=== PATIENT | female | born 1975 | race American Indian/Alaskan Native ===

== ENCOUNTER 2021-03-04 19:42 | Inpatient (IN) | payer MEDICARE, OTHER ==
[2021-03-04] MEDS ORDERED: MORPHINE 2 MG/1 ML INJ IV ONE (20:23)
[2021-03-04] MEDS ORDERED: ONDANSETRON 4 MG/2 ML INJ IV ONE (20:23)
--- NOTE | 2021-03-04 21:16 | XRay Report ---
CHEST 1 VIEW 03/04/2021 8:06 PM INDICATION / CLINICAL INFORMATION: Dyspnea. COMPARISON: None available. FINDINGS: SUPPORT DEVICES: None. HEART / MEDIASTINUM: The heart size is normal with a left ventricular configuration. Pulmonary vascul ature is normal. LUNGS / PLEURA: No significant pulmonary or pleural abnormality. No pneumothorax. ADDITIONAL FINDINGS: No significant additional findings. IMPRESSION: No acute findings. Signer Name: Yung Roach MD Signed: 03/04/2021 9:12 PM Workstation Name: [id number]
[2021-03-04 21:19] LABS: INR 1.29 (0.87-1.13)
[2021-03-04 21:28] LABS: Alanine Aminotransferase 147 units/L (7-56); Albumin 2.9 g/dL (3.9-5); Blood Urea Nitrogen 32 mg/dL (7-17); Calcium 9.8 mg/dL (8.4-10.2); Hemolysis Index 14
[2021-03-04 21:43] LABS: BUN/Creatinine Ratio 107; Hematocrit 26.2 % (30.3-42.9); Hemoglobin 9.4 gm/dl (10.1-14.3); Mean Corpuscular HGB Conc 36 % (30-34); Mean Corpuscular Volume 108 fl (79-97); Red Blood Count 2.44 M/mm3 (3.65-5.03)
[2021-03-04 21:49] LABS: Red Cell Distribution Width 20.7 % (13.2-15.2)
[2021-03-04 21:51] LABS: Platelet Count 107 K/mm3 (140-440)
[2021-03-04] MEDS ORDERED: SODIUM CHLORIDE 0.9% 1000 ML 1,000 ML IV ONE (22:22)
[2021-03-04] MEDS ORDERED: diphenhydrAMINE 50 MG/ML VIAL IV ONE (23:17)
--- NOTE | 2021-03-05 00:12 | Emergency Department Report ---
ED Shortness of Breath HPI - General Chief Complaint: Dyspnea/Respdistress Stated Complaint: EDWIN Time Seen by Provider: 03/04/21 20:18 Source: patient, EMS Mode of arrival: Stretcher Limitations: Other - History of Present Illness Initial Comments: Patient is a 45-year-old F [place]ian female who is presenting with some shortness of breath. She has a relatively recent diagnosis of cirrhosis. Cirrhosis secondary to alcohol abuse. She is currently not on a transplant list. Patient states that she has some abdominal distention which is greater than normal. She denies any cough fevers chills nausea vomiting or diarrhea at this time. Patient is a [email or web address] patient - Related Data Home Medications Medication Instructions Recorded Confirmed Last Taken Cefdinir PO MDD 300 mg 03/04/21 Unknown Furosemide [Lasix] 20 mg PO QDAY 03/04/21 03/04/21 Unknown Prednisone 40 mg PO QDAY 03/04/21 03/04/21 Unknown QUEtiapine 50 mg PO QHS 03/04/21 03/04/21 Unknown Spironolactone 50 mg PO DAILY 03/04/21 03/04/21 Unknown Allergies Allergy/AdvReac Type Severity Reaction Status Date / Time ketorolac [From Toradol] AdvReac Rash Verified 03/04/21 20:30 ED Review of Systems ROS: Stated complaint: EDWIN Other details as noted in HPI Comment: All other systems reviewed and negative ED Past Medical Hx - Medications Home Medications: Home Medications Medication Instructions Recorded Confirmed Last Taken Type Cefdinir PO MDD 300 mg 03/04/21 Unknown History Furosemide [Lasix] 20 mg PO QDAY 03/04/21 03/04/21 Unknown History Prednisone 40 mg PO QDAY 03/04/21 03/04/21 Unknown History QUEtiapine 50 mg PO QHS 03/04/21 03/04/21 Unknown History Spironolactone 50 mg PO DAILY 03/04/21 03/04/21 Unknown History ED Physical Exam - General Limitations: Other General appearance: alert, in no apparent distress - Head Head exam: Present: atraumatic, normocephalic - Eye Eye exam: Present: normal appearance, scleral icterus - ENT ENT exam: Present: mucous membranes moist - Neck Neck exam: Present: normal inspection - Respiratory Respiratory exam: Present: normal lung sounds bilaterally. Absent: respiratory distress, wheezes, rales - Cardiovascular Cardiovascular Exam: Present: regular rate, normal rhythm, normal heart sounds. Absent: systolic murmur, diastolic murmur, rubs, gallop - GI/Abdominal GI/Abdominal exam: Present: soft, distended, normal bowel sounds. Absent: tenderness, guarding, rebound - Extremities Exam Extremities exam: Present: normal inspection - Back Exam Back exam: Present: normal inspection - Neurological Exam Neurological exam: Present: alert, oriented X3, other (Slow to answer questions but ANO x3) - Psychiatric Psychiatric exam: Present: normal affect, normal mood - Skin Skin exam: Present: warm, dry, intact, normal color. Absent: rash ED Course Vital Signs 03/04/21 20:01 Temperature 97.7 F Pulse Rate 85 Respiratory 18 Rate Blood Pressure 126/71 [Right] O2 Sat by Pulse 100 Oximetry - Reevaluation(s) Reevaluation #1: 03/05/21 00:12 Eventually got a call back from [facility] and discussed the patient with Dr. Gaytan. Patient has been accepted to a [facility] facility however he is not sure that they have a bed at this time. Per their new policy will wait approximately 2 hours to hear back from them regarding the patient's bed status. If there is no bed for the patient had a [facility] facility the patient is to be admitted here. Patient will be signed out to my ER colleague for update on bed status at a [facility] ED Medical Decision Making - Lab Data Result diagrams: 03/04/21 20:53 03/04/21 20:53 Lab Results 03/04/21 03/04/21 03/04/21 Range/Units 20:53 20:53 20:53 WBC 12.0 H (4.5-11.0) K/mm3 RBC 2.44 L (3.65-5.03) M/mm3 Hgb 9.4 L (10.1-14.3) gm/dl Hct 26.2 L (30.3-42.9) % MCV 108 H (79-97) fl MCH 39 H (28-32) pg MCHC 36 H (30-34) % RDW 20.7 H (13.2-15.2) % Plt Count 107 L (140-440) K/mm3 PT 16.7 H (12.2-14.9) Sec. INR 1.29 H (0.87-1.13) APTT 27.0 (24.2-36.6) Sec. Sodium 123 L (137-145) mmol/L Potassium 5.5 H (3.6-5.0) mmol/L Chloride 97.9 L (98-107) mmol/L Carbon Dioxide 11 L (22-30) mmol/L Anion Gap 20 mmol/L BUN 32 H (7-17) mg/dL Creatinine 0.3 L (0.6-1.2) mg/dL Estimated GFR > 60 ml/min BUN/Creatinine Ratio 107 % Glucose 148 H (65-100) mg/dL Calcium 9.8 (8.4-10.2) mg/dL Total Bilirubin 18.90 H (0.1-1.2) mg/dL AST 113 H (5-40) units/L ALT 147 H (7-56) units/L Alkaline Phosphatase 164 H (35-129) units/L Ammonia (25-60) umol/L Total Protein 7.0 (6.3-8.2) g/dL Albumin 2.9 L (3.9-5) g/dL Albumin/Globulin Ratio 0.7 % Plasma/Serum Alcohol (0-0.07) % 03/04/21 03/04/21 Range/Units 20:53 20:53 WBC (4.5-11.0) K/mm3 RBC (3.65-5.03) M/mm3 Hgb (10.1-14.3) gm/dl Hct (30.3-42.9) % MCV (79-97) fl MCH (28-32) pg MCHC (30-34) % RDW (13.2-15.2) % Plt Count (140-440) K/mm3 PT (12.2-14.9) Sec. INR (0.87-1.13) APTT (24.2-36.6) Sec. Sodium (137-145) mmol/L Potassium (3.6-5.0) mmol/L Chloride (98-107) mmol/L Carbon Dioxide (22-30) mmol/L Anion Gap mmol/L BUN (7-17) mg/dL Creatinine (0.6-1.2) mg/dL Estimated GFR ml/min BUN/Creatinine Ratio % Glucose (65-100) mg/dL Calcium (8.4-10.2) mg/dL Total Bilirubin (0.1-1.2) mg/dL AST (5-40) units/L ALT (7-56) units/L Alkaline Phosphatase (35-129) units/L Ammonia 57.0 (25-60) umol/L Total Protein (6.3-8.2) g/dL Albumin (3.9-5) g/dL Albumin/Globulin Ratio % Plasma/Serum Alcohol < 0.01 (0-0.07) % - Radiology Data CHEST 1 VIEW 03/04/2021 8:06 PM INDICATION / CLINICAL INFORMATION: Dyspnea. COMPARISON: None available. FINDINGS: SUPPORT DEVICES: None. HEART / MEDIASTINUM: The heart size is normal with a left ventricular configuration. Pulmonary vasculature is normal. LUNGS / PLEURA: No significant pulmonary or pleural abnormality. No pneumothorax. ADDITIONAL FINDINGS: No significant additional findings. IMPRESSION: No acute findings. Signer Name: Yung Roach MD Signed: 03/04/2021 9:12 PM Workstation Name: [facility] - Medical Decision Making Patient is a 45-year-old F [place] female who is presenting with shortness of breath. Patient does have some abdominal distention and ascites secondary to her advancing liver cirrhosis. Patient is quite jaundiced and experiencing some itching. Patient does have a low sodium of 123. According to [facility] documentation and her sodium does run in the upper 120s. Patient started on some IV fluids. Patient to be admitted. Critical care attestation.: If time is entered above; I have spent that time in minutes in the direct care of this critically ill patient, excluding procedure time. ED Disposition Clinical Impression: Ascites, Liver cirrhosis, Dyspnea, Hyponatremia, Acute kidney injury, Dehydration Disposition: 02 [facility]ORT [facility] Is pt being admited?: No Does the pt Need Aspirin: No Condition: Stable Referrals: [facility]ER[facility] [Other] - 3-5 Days Time of Disposition: 00:18
[2021-03-05 01:40] LABS: Anisocytosis 1+; Total Cells Counted 100
[2021-03-05 01:42] LABS: Burr Cells 1+; Platelet Estimate Consistent w Auto; Schistocytes Few; Tear Drop Cells Few
[2021-03-05] MEDS ORDERED: ACETAMINOPHEN 325 MG TAB PO PRN (03:35)
[2021-03-05] MEDS ORDERED: ALBUTEROL 2.5 MG/3 ML NEBU IH PRN (03:35)
[2021-03-05] MEDS ORDERED: ONDANSETRON 4 MG/2 ML INJ IV PRN (03:35)
--- NOTE | 2021-03-05 03:45 | History and Physical Report ---
History of Present Illness Date of examination: 03/05/21 Date of admission: 03/05/21 Chief complaint: Dyspnea Abdominal distention History of present illness: 45-year-old female with history of ascites cirrhosis and alcohol abuse was brought to the emergency room because of shortness of breath for the last couple of days. Patient has cirrhosis secondary to alcohol abuse. She is currently not on a transplant list. Patient states that she has some abdominal distention which is greater than normal. She denies any cough fevers chills nausea vomiting or diarrhea at this time. Patient is a [place] patient In the emergency room patient is found to have ascites. Also patient total bilirubin is 18.90. AST 113 ALT 147 alkaline phosphatase 164. We are going to admit the patient to consult GI and interventional radiology for evaluation. Patient is a [place] patient Past History Past Medical History: heart failure, other (Cirrhosis alcohol abuse ascites) Medications and Allergies Allergies Allergy/AdvReac Type Severity Reaction Status Date / Time ketorolac [From Toradol] AdvReac Rash Verified 03/04/21 20:30 Home Medications Medication Instructions Recorded Confirmed Last Taken Type Cefdinir PO MDD 300 mg 03/04/21 Unknown History Furosemide [Lasix] 20 mg PO QDAY 03/04/21 03/04/21 Unknown History Prednisone 40 mg PO QDAY 03/04/21 03/04/21 Unknown History QUEtiapine 50 mg PO QHS 03/04/21 03/04/21 Unknown History Spironolactone 50 mg PO DAILY 03/04/21 03/04/21 Unknown History Active Meds: Active Medications Acetaminophen (Acetaminophen 325 Mg Tab) 650 mg PO Q4H PRN PRN Reason: Pain MILD(1-3)/Fever >100.5/SIM Albuterol (Albuterol 2.5 Mg/3 Ml Nebu) 2.5 mg IH Q4HRT PRN PRN Reason: Shortness Of Breath Albuterol/Ipratropium (Ipratropium/Albuterol Sulfate 3 Ml Ampul.Neb) 1 ampul IH Q6HRT LUCERO Famotidine (Famotidine 20 Mg Tab) 20 mg PO BID LUCERO Hydromorphone HCl (Hydromorphone 1 Mg/1 Ml Inj) 0.5 mg IV Q3H PRN PRN Reason: Pain , Severe (7-10) Miscellaneous Medication (Prednisone) 40 mg PO QDAY [facility] Miscellaneous Medication (Quetiapine) 50 mg PO QHS [facility] Miscellaneous Medication (Spironolactone) 50 mg PO DAILY [facility] Ondansetron HCl (Ondansetron 4 Mg/2 Ml Inj) 4 mg IV Q8H PRN PRN Reason: Nausea And Vomiting Oxycodone/Acetaminophen (Oxycodone /Acetaminophen 5-325mg Tab) 1 tab PO Q6H PRN PRN Reason: Pain, Moderate (4-6) Sodium Chloride (Sodium Chloride 0.9% 10 Ml Flush Syringe) 10 ml IV BID LUCERO Sodium Chloride (Sodium Chloride 0.9% 10 Ml Flush Syringe) 10 ml IV PRN PRN PRN Reason: LINE FLUSH Review of Systems All systems: negative Cardiovascular: edema, shortness of breath, dyspnea on exertion Respiratory: shortness of breath, dyspnea on exertion Gastrointestinal: other (Abdominal distention) Exam - Constitutional Vitals: Temp Pulse Resp BP Pulse Ox 97.7 F 64 13 138/79 100 03/04/21 20:01 03/05/21 03:15 03/05/21 03:15 03/05/21 03:15 03/05/21 03:15 General appearance: Present: no acute distress, well-nourished - EENT Eyes: Present: PERRL ENT: hearing intact, clear oral mucosa - Neck Neck: Present: supple, normal ROM - Respiratory Respiratory effort: normal Respiratory: bilateral: CTA - Cardiovascular Heart Sounds: Present: S1 & S2. Absent: rub, click - Extremities Extremities: pulses symmetrical Extremity abnormal: edema Peripheral Pulses: within normal limits - Abdominal General gastrointestinal: Present: soft, non-tender, distended, normal bowel sounds Female genitourinary: Present: normal - Integumentary Integumentary: Present: clear, warm, dry - Musculoskeletal Musculoskeletal: gait normal, strength equal bilaterally - Psychiatric Psychiatric: appropriate mood/affect, intact judgment & insight - Neurologic Neurologic: CNII-XII intact, moves all extremities Results - Labs CBC & Chem 7: 03/04/21 20:53 03/04/21 20:53 Labs: Laboratory Last Values WBC 12.0 K/mm3 (4.5-11.0) H 03/04/21 20:53 RBC 2.44 M/mm3 (3.65-5.03) L 03/04/21 20:53 Hgb 9.4 gm/dl (10.1-14.3) L 03/04/21 20:53 Hct 26.2 % (30.3-42.9) L 03/04/21 20:53 MCV 108 fl (79-97) H 03/04/21 20:53 MCH 39 pg (28-32) H 03/04/21 20:53 MCHC 36 % (30-34) H 03/04/21 20:53 RDW 20.7 % (13.2-15.2) H 03/04/21 20:53 Plt Count 107 K/mm3 (140-440) L 03/04/21 20:53 Add Manual Diff Complete 03/04/21 20:53 Total Counted 100 03/04/21 20:53 Seg Neuts % (Manual) 81.0 % (40.0-70.0) H 03/04/21 20:53 Lymphocytes % (Manual) 17.0 % (13.4-35.0) 03/04/21 20:53 Monocytes % (Manual) 2.0 % (0.0-7.3) 03/04/21 20:53 Nucleated RBC % Not Reportable 03/04/21 20:53 Seg Neutrophils # Man 9.7 K/mm3 (1.8-7.7) H 03/04/21 20:53 Band Neutrophils # 0.0 K/mm3 03/04/21 20:53 Lymphocytes # (Manual) 2.0 K/mm3 (1.2-5.4) 03/04/21 20:53 Abs React Lymphs (Man) 0.0 K/mm3 03/04/21 20:53 Monocytes # (Manual) 0.2 K/mm3 (0.0-0.8) 03/04/21 20:53 Eosinophils # (Manual) 0.0 K/mm3 (0.0-0.4) 03/04/21 20:53 Basophils # (Manual) 0.0 K/mm3 (0.0-0.1) 03/04/21 20:53 Metamyelocytes # 0.0 K/mm3 03/04/21 20:53 Myelocytes # 0.0 K/mm3 03/04/21 20:53 Promyelocytes # 0.0 K/mm3 03/04/21 20:53 Blast Cells # 0.0 K/mm3 03/04/21 20:53 WBC Morphology Not Reportable 03/04/21 20:53 Hypersegmented Neuts Not Reportable 03/04/21 20:53 Hyposegmented Neuts Not Reportable 03/04/21 20:53 Hypogranular Neuts Not Reportable 03/04/21 20:53 Smudge Cells Not Reportable 03/04/21 20:53 Toxic Granulation Not Reportable 03/04/21 20:53 Toxic Vacuolation Not Reportable 03/04/21 20:53 Dohle Bodies Not Reportable 03/04/21 20:53 Pelger-Huet Anomaly Not Reportable 03/04/21 20:53 Pita Rods Not Reportable 03/04/21 20:53 Platelet Estimate Consistent w auto 03/04/21 20:53 Clumped Platelets Not Reportable 03/04/21 20:53 Plt Clumps, EDTA Not Reportable 03/04/21 20:53 Large Platelets Not Reportable 03/04/21 20:53 Giant Platelets Not Reportable 03/04/21 20:53 Platelet Satelliting Not Reportable 03/04/21 20:53 Plt Morphology Comment Not Reportable 03/04/21 20:53 RBC Morphology Not Reportable 03/04/21 20:53 Dimorphic RBCs Not Reportable 03/04/21 20:53 Polychromasia Not Reportable 03/04/21 20:53 Hypochromasia Not Reportable 03/04/21 20:53 Poikilocytosis Not Reportable 03/04/21 20:53 Anisocytosis 1+ 03/04/21 20:53 Microcytosis Not Reportable 03/04/21 20:53 Macrocytosis Not Reportable 03/04/21 20:53 Spherocytes Not Reportable 03/04/21 20:53 Pappenheimer Bodies Not Reportable 03/04/21 20:53 Sickle Cells Not Reportable 03/04/21 20:53 Target Cells Not Reportable 03/04/21 20:53 Tear Drop Cells Few 03/04/21 20:53 Ovalocytes Not Reportable 03/04/21 20:53 Helmet Cells Not Reportable 03/04/21 20:53 Eaton-Blissfield Bodies Not Reportable 03/04/21 20:53 Winnie Rings Not Reportable 03/04/21 20:53 Jd Cells 1+ 03/04/21 20:53 Bite Cells Not Reportable 03/04/21 20:53 Crenated Cell Not Reportable 03/04/21 20:53 Elliptocytes Not Reportable 03/04/21 20:53 Acanthocytes (Spur) Not Reportable 03/04/21 20:53 Rouleaux Not Reportable 03/04/21 20:53 Hemoglobin C Crystals Not Reportable 03/04/21 20:53 Schistocytes Few 03/04/21 20:53 Malaria parasites Not Reportable 03/04/21 20:53 Kp Bodies Not Reportable 03/04/21 20:53 Hem Pathologist Commnt No 03/04/21 20:53 PT 16.7 Sec. (12.2-14.9) H 03/04/21 20:53 INR 1.29 (0.87-1.13) H 03/04/21 20:53 APTT 27.0 Sec. (24.2-36.6) 03/04/21 20:53 Sodium 123 mmol/L (137-145) L 03/04/21 20:53 Potassium 5.5 mmol/L (3.6-5.0) H 03/04/21 20:53 Chloride 97.9 mmol/L (98-107) L 03/04/21 20:53 Carbon Dioxide 11 mmol/L (22-30) L 03/04/21 20:53 Anion Gap 20 mmol/L 03/04/21 20:53 BUN 32 mg/dL (7-17) H 03/04/21 20:53 Creatinine 0.3 mg/dL (0.6-1.2) L 03/04/21 20:53 Estimated GFR > 60 ml/min 03/04/21 20:53 BUN/Creatinine Ratio 107 % 03/04/21 20:53 Glucose 148 mg/dL (65-100) H 03/04/21 20:53 Calcium 9.8 mg/dL (8.4-10.2) 03/04/21 20:53 Total Bilirubin 18.90 mg/dL (0.1-1.2) H 03/04/21 20:53 AST 113 units/L (5-40) H 03/04/21 20:53 ALT 147 units/L (7-56) H 09/23/21 20:53 Alkaline Phosphatase 164 units/L (35-129) H 03/04/21 20:53 Ammonia 57.0 umol/L (25-60) 03/04/21 20:53 Total Protein 7.0 g/dL (6.3-8.2) 03/04/21 20:53 Albumin 2.9 g/dL (3.9-5) L 03/04/21 20:53 Albumin/Globulin Ratio 0.7 % 03/04/21 20:53 Plasma/Serum Alcohol < 0.01 % (0-0.07) 03/04/21 20:53 - Imaging and Cardiology Chest x-ray: report reviewed Assessment and Plan VTE prophylaxis?: Mechanical Plan of care discussed with patient/family: Yes - Patient Problems (1) Ascites Current Visit: Yes Status: Acute Plan to address problem: Admit the patient to the medical floor. Put the patient on cardiac diet. Fluid restriction. Lasix 40 mg IV daily. Pepcid 20 mg p.o. twice daily will consult GI and interventional radiology for evaluation and possible paracentesis (2) Hyperkalemia Current Visit: Yes Status: Acute Plan to address problem: We are giving Kayexalate 30 g p.o. x1 dose. Recheck BMP in the morning (3) Alcohol abuse Current Visit: Yes Status: Acute Plan to address problem: We counseled the patient regarding quit drinking. Patient is put on thiamine folic acid. And banana bag (4) Dyspnea Current Visit: Yes Status: Acute Plan to address problem: Oxygen via nasal cannula 3 to per minute. DuoNeb by nebulizer every 4 hours. Albuterol via nebulizer every 4 hours as needed. Lasix 40 mg IV daily (5) Hyponatremia Current Visit: Yes Status: Acute Plan to address problem: We will put the patient on fluid restriction. We will recheck BMP in the morning we will monitor the patient closely (6) Liver cirrhosis Current Visit: Yes Status: Acute Plan to address problem: We counseled the patient regarding quit drinking. We consulted GI for evaluation. We recheck CMP in the morning (7) Deep vein thrombosis (DVT) prophylaxis declined Current Visit: Yes Status: Acute Plan to address problem: SCD for DVT prophylaxis. Pepcid 20 mg p.o. twice daily for GI prophylaxis. Patient is a full code
[2021-03-05] MEDS ORDERED: FUROSEMIDE 40 MG/4 ML INJ IV ONE (03:49)
[2021-03-05] MEDS ORDERED: SODIUM POLYSTYRENE 15 GM/60 ML ORAL LIQD PO ONE (03:50)
[2021-03-05] MEDS: HYDROmorphone 1 MG/1 ML INJ IV PRN ×2 (04:52→23:00)
[2021-03-05] MEDS ORDERED: diphenhydrAMINE 50 MG/ML VIAL IV ONE ×2 (09:26→18:24)
[2021-03-05] MEDS ORDERED: PREDNISONE 40 MG PO SCH (10:00)
[2021-03-05] MEDS ORDERED: THIAMINE 100 MG TAB PO SCH (10:00)
[2021-03-05] MEDS ORDERED: SPIRONOLACTONE 50 MG PO SCH (10:00)
[2021-03-05] MEDS ORDERED: predniSONE 20 MG TAB PO SCH (10:00)
[2021-03-05] MEDS ORDERED: SPIRONOLACTONE 50 MG TAB PO SCH (10:00)
[2021-03-05] MEDS ORDERED: FAMOTIDINE 20 MG TAB PO SCH (10:00)
[2021-03-05] MEDS ORDERED: FOLIC ACID 1 MG TAB PO SCH (10:00)
[2021-03-05] MEDS: IPRATROPIUM/ALBUTEROL SULFATE 3 ML AMPUL.NEB IH SCH ×2 (10:24→15:28)
[2021-03-05] MEDS ORDERED: LORazepam 1 MG TAB PO ONE (12:25)
--- NOTE | 2021-03-05 13:25 | Progress Note ---
Assessment and Plan Assessment and plan: #Decompensated alcoholic cirrhosis with ascites #Volume overload #Alcohol dependence -Initiated fluid restriction of 1.5 L/day and IV Lasix 40 mg x 1 in the ED -GI consulted; pending recs -Interventional radiology consulted for possible diagnostic versus therapeutic paracentesis; pending recs -Started on ceftriaxone 1 g daily for SBP prophylaxis -Continue with thiamine and folic acid -Placed on cardiac diet -Counseled on alcohol cessation; patient expressed understanding #Acute hypoxic respiratory failure -Patient requiring 3 L nasal cannula (no oxygen requirement at home); wean as tolerated -Continue with albuterol nebulizers as needed and DuoNeb as needed -She will improved with continue diuresis -We will continue to monitor #Hyperkalemia -Potassium 5.5 -Received Kayexalate 30 g by mouth x1 in the ED -Repeating BMP today -We will continue to monitor to determine if hepatorenal syndrome is occurring #Hyponatremia -Na 123 -Etiology unknown but could be secondary to volume overload -We will order urine osmolality, urine sodium, urine chloride, and urine potassium -We will continue to monitor #UTI -Previously diagnosed with a UTI at outside facility and discharged with p.o. cefdinir 300 mg twice daily x10 days; however, patient was admitted to before initiation -Gram-negative bacteria will be covered with administration of ceftriaxone while inpatient. Will need to complete a 10-day course. If discharged prior to 10 days, patient can continue with remaining cefdinir. #Anxiety -Continue home quetiapine 50 mg at night #DVT prophylaxis -Patient declined chemical prophylaxis; continue with SCDs bilaterally Disposition Plan: Continue medical management History Interval history: No acute events overnight. Hospitalist Physical - Constitutional Vitals: Temp Pulse Resp BP Pulse Ox 97.7 F 85 12 141/87 100 03/04/21 20:01 03/05/21 11:04 03/05/21 05:30 03/05/21 11:04 03/05/21 06:45 General appearance: Present: no acute distress, well-nourished - EENT Eyes: Present: EOM intact, scleral icterus ENT: hearing intact, clear oral mucosa, dentition normal - Neck Neck: Present: supple, normal ROM - Respiratory Respiratory effort: normal Respiratory: bilateral: rhonchi - Cardiovascular Rhythm: regularly irregular Heart Sounds: Present: S1 & S2, systolic murmur - Extremities Extremities: no ischemia, pulses intact, pulses symmetrical, normal temperature Extremity abnormal: edema (Trace edema to bilateral knees) Peripheral Pulses: within normal limits - Abdominal General gastrointestinal: soft, tender, distended (Mild ascites present), normal bowel sounds - Integumentary Integumentary: Present: clear, warm, dry, jaundice - Psychiatric Psychiatric: appropriate mood/affect, intact judgment & insight, memory intact, cooperative - Neurologic Neurologic: CNII-XII intact, moves all extremities - Allied Health Allied health notes reviewed: nursing HEART Score - HEART Score History: Moderately suspicious EKG: Non-specific Age: 45-65 Risk factors: 1-2 risk factors - Critical Actions Critical Actions: 4-6 pts:12-16.6% risk of adverse cardiac event. Should be admitted Results - Labs CBC & Chem 7: 03/04/21 20:53 03/04/21 20:53 Labs: Laboratory Last Values WBC 12.0 K/mm3 (4.5-11.0) H 03/04/21 20:53 RBC 2.44 M/mm3 (3.65-5.03) L 03/04/21 20:53 Hgb 9.4 gm/dl (10.1-14.3) L 03/04/21 20:53 Hct 26.2 % (30.3-42.9) L 03/04/21 20:53 MCV 108 fl (79-97) H 03/04/21 20:53 MCH 39 pg (28-32) H 03/04/21 20:53 MCHC 36 % (30-34) H 03/04/21 20:53 RDW 20.7 % (13.2-15.2) H 03/04/21 20:53 Plt Count 107 K/mm3 (140-440) L 03/04/21 20:53 Add Manual Diff Complete 03/04/21 20:53 Total Counted 100 03/04/21 20:53 Seg Neuts % (Manual) 81.0 % (40.0-70.0) H 03/04/21 20:53 Lymphocytes % (Manual) 17.0 % (13.4-35.0) 03/04/21 20:53 Monocytes % (Manual) 2.0 % (0.0-7.3) 03/04/21 20:53 Nucleated RBC % Not Reportable 03/04/21 20:53 Seg Neutrophils # Man 9.7 K/mm3 (1.8-7.7) H 03/04/21 20:53 Band Neutrophils # 0.0 K/mm3 03/04/21 20:53 Lymphocytes # (Manual) 2.0 K/mm3 (1.2-5.4) 03/04/21 20:53 Abs React Lymphs (Man) 0.0 K/mm3 03/04/21 20:53 Monocytes # (Manual) 0.2 K/mm3 (0.0-0.8) 03/04/21 20:53 Eosinophils # (Manual) 0.0 K/mm3 (0.0-0.4) 03/04/21 20:53 Basophils # (Manual) 0.0 K/mm3 (0.0-0.1) 03/04/21 20:53 Metamyelocytes # 0.0 K/mm3 03/04/21 20:53 Myelocytes # 0.0 K/mm3 03/04/21 20:53 Promyelocytes # 0.0 K/mm3 03/04/21 20:53 Blast Cells # 0.0 K/mm3 03/04/21 20:53 WBC Morphology Not Reportable 03/04/21 20:53 Hypersegmented Neuts Not Reportable 03/04/21 20:53 Hyposegmented Neuts Not Reportable 03/04/21 20:53 Hypogranular Neuts Not Reportable 03/04/21 20:53 Smudge Cells Not Reportable 03/04/21 20:53 Toxic Granulation Not Reportable 03/04/21 20:53 Toxic Vacuolation Not Reportable 03/04/21 20:53 Dohle Bodies Not Reportable 03/04/21 20:53 Pelger-Huet Anomaly Not Reportable 03/04/21 20:53 Pita Rods Not Reportable 03/04/21 20:53 Platelet Estimate Consistent w auto 03/04/21 20:53 Clumped Platelets Not Reportable 03/04/21 20:53 Plt Clumps, EDTA Not Reportable 03/04/21 20:53 Large Platelets Not Reportable 03/04/21 20:53 Giant Platelets Not Reportable 03/04/21 20:53 Platelet Satelliting Not Reportable 03/04/21 20:53 Plt Morphology Comment Not Reportable 03/04/21 20:53 RBC Morphology Not Reportable 03/04/21 20:53 Dimorphic RBCs Not Reportable 03/04/21 20:53 Polychromasia Not Reportable 03/04/21 20:53 Hypochromasia Not Reportable 03/04/21 20:53 Poikilocytosis Not Reportable 03/04/21 20:53 Anisocytosis 1+ 03/04/21 20:53 Microcytosis Not Reportable 03/04/21 20:53 Macrocytosis Not Reportable 03/04/21 20:53 Spherocytes Not Reportable 03/04/21 20:53 Pappenheimer Bodies Not Reportable 03/04/21 20:53 Sickle Cells Not Reportable 03/04/21 20:53 Target Cells Not Reportable 03/04/21 20:53 Tear Drop Cells Few 03/04/21 20:53 Ovalocytes Not Reportable 03/04/21 20:53 Helmet Cells Not Reportable 03/04/21 20:53 [place] Bodies Not Reportable 03/04/21 20:53 [place] Rings Not Reportable 03/04/21 20:53 [place] Cells 1+ 03/04/21 20:53 Bite Cells Not Reportable 03/04/21 20:53 Crenated Cell Not Reportable 03/04/21 20:53 Elliptocytes Not Reportable 03/04/21 20:53 Acanthocytes (Spur) Not Reportable 03/04/21 20:53 Rouleaux Not Reportable 03/04/21 20:53 Hemoglobin C Crystals Not Reportable 03/04/21 20:53 Schistocytes Few 03/04/21 20:53 Malaria parasites Not Reportable 03/04/21 20:53 Kp Bodies Not Reportable 03/04/21 20:53 Hem Pathologist Commnt No 03/04/21 20:53 PT 16.7 Sec. (12.2-14.9) H 03/04/21 20:53 INR 1.29 (0.87-1.13) H 03/04/21 20:53 APTT 27.0 Sec. (24.2-36.6) 03/04/21 20:53 Sodium 123 mmol/L (137-145) L 03/04/21 20:53 Potassium 5.5 mmol/L (3.6-5.0) H 03/04/21 20:53 Chloride 97.9 mmol/L (98-107) L 03/04/21 20:53 Carbon Dioxide 11 mmol/L (22-30) L 03/04/21 20:53 Anion Gap 20 mmol/L 03/04/21 20:53 BUN 32 mg/dL (7-17) H 03/04/21 20:53 Creatinine 0.3 mg/dL (0.6-1.2) L 03/04/21 20:53 Estimated GFR > 60 ml/min 03/04/21 20:53 BUN/Creatinine Ratio 107 % 03/04/21 20:53 Glucose 148 mg/dL (65-100) H 03/04/21 20:53 Calcium 9.8 mg/dL (8.4-10.2) 03/04/21 20:53 Total Bilirubin 18.90 mg/dL (0.1-1.2) H 03/04/21 20:53 AST 113 units/L (5-40) H 03/04/21 20:53 ALT 147 units/L (7-56) H 03/04/21 20:53 Alkaline Phosphatase 164 units/L (35-129) H 03/04/21 20:53 Ammonia 57.0 umol/L (25-60) 03/04/21 20:53 Total Protein 7.0 g/dL (6.3-8.2) 03/04/21 20:53 Albumin 2.9 g/dL (3.9-5) L 03/04/21 20:53 Albumin/Globulin Ratio 0.7 % 03/04/21 20:53 Plasma/Serum Alcohol < 0.01 % (0-0.07) 03/04/21 20:53 Active Medications - Current Medications Current Medications: Generic Name Dose Route Start Last Admin Trade Name Freq PRN Reason Stop Dose Admin Acetaminophen 650 mg 03/05/21 03:35 Acetaminophen 325 Mg Tab PO Q4H PRN Pain MILD(1-3)/Fever >100.5/SIM Albuterol 2.5 mg 03/05/21 03:35 Albuterol 2.5 Mg/3 Ml Nebu IH Q4HRT PRN Shortness Of Breath Albuterol/Ipratropium 1 ampul 03/05/21 08:00 03/05/21 10:24 Ipratropium/Albuterol Sulfate 3 Ml Ampul.Neb IH Not Given Q6HRT LUCERO Famotidine 20 mg 03/05/21 10:00 03/05/21 10:25 Famotidine 20 Mg Tab PO 20 mg BID LUCERO Administration Folic Acid 1 mg 03/05/21 10:00 03/05/21 10:25 Folic Acid 1 Mg Tab PO 1 mg QDAY LUCERO Administration Hydromorphone HCl 0.5 mg 03/05/21 03:35 03/05/21 04:52 Hydromorphone 1 Mg/1 Ml Inj IV 0.5 mg Q3H PRN Administration Pain , Severe (7-10) Ceftriaxone Sodium 500 mg/ 50 mls @ 100 mls/hr 03/05/21 13:00 Sodium Chloride IV 03/11/21 12:59 Q24H [facility] Protocol Ondansetron HCl 4 mg 03/05/21 03:35 Ondansetron 4 Mg/2 Ml Inj IV Q8H PRN Nausea And Vomiting Oxycodone/Acetaminophen 1 tab 03/05/21 03:35 Oxycodone /Acetaminophen 5-325mg Tab PO Q6H PRN Pain, Moderate (4-6) Prednisone 40 mg 03/05/21 10:00 03/05/21 10:25 Prednisone 20 Mg Tab PO 40 mg QDAY LUCERO Administration Quetiapine Fumarate 50 mg 03/05/21 22:00 Quetiapine 25 Mg Tab PO QHS LUCERO Sodium Chloride 10 ml 03/05/21 10:00 03/05/21 10:17 Sodium Chloride 0.9% 10 Ml Flush Syringe IV Not Given BID LUCERO Sodium Chloride 10 ml 03/05/21 03:35 Sodium Chloride 0.9% 10 Ml Flush Syringe IV PRN PRN LINE FLUSH Spironolactone 50 mg 03/05/21 10:00 03/05/21 11:04 Spironolactone 50 Mg Tab PO 50 mg QDAY LUCERO Administration Thiamine HCl 100 mg 03/05/21 10:00 03/05/21 11:05 Thiamine 100 Mg Tab PO 100 mg QDAY LUCERO Administration
--- NOTE | 2021-03-05 15:02 | Gastroenterology Consultation ---
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 She has no hx of hepatitis. She was placed on steroids, and PO lasix, but came to the ER for worsening anasarca for the last 4 days. She has no blood in the stools, and is lucid/no DTs or asterixis on exam. She denies abdominal pain, but does have discomfort from the swelling, that leads to SOB. She has never had a paracentesis by her report. She denies blood thinner therapy, and is not taking a MVI. She denies EtOH since early January. Past History Past Medical History: heart failure, other (Cirrhosis alcohol abuse ascites) Past Surgical History: No surgical history Social history: alcohol abuse. denies: smoking Family history: no significant family history Medications and Allergies Allergies Allergy/AdvReac Type Severity Reaction Status Date / Time ketorolac [From Toradol] Allergy Rash Verified 03/05/21 15:09 Home Medications Medication Instructions Recorded Confirmed Last Taken Type Cefdinir 300 mg PO MDD 300 mg 03/04/21 Unknown History Furosemide [Lasix] 20 mg PO QDAY 03/04/21 03/05/21 Unknown History Prednisone 40 mg PO QDAY 03/04/21 03/05/21 Unknown History QUEtiapine 50 mg PO QHS 03/04/21 03/05/21 Unknown History Spironolactone 50 mg PO DAILY 03/04/21 03/05/21 Unknown History Active Meds: Active Medications Acetaminophen (Acetaminophen 325 Mg Tab) 650 mg PO Q4H PRN PRN Reason: Pain MILD(1-3)/Fever >100.5/SIM Albuterol (Albuterol 2.5 Mg/3 Ml Nebu) 2.5 mg IH Q4HRT PRN PRN Reason: Shortness Of Breath Albuterol/Ipratropium (Ipratropium/Albuterol Sulfate 3 Ml Ampul.Neb) 1 ampul IH Q6HRT [facility] Last Admin: 03/05/21 10:24 Dose: Not Given Documented by: Folic Acid (Folic Acid 1 Mg Tab) 1 mg PO QDAY [facility] Last Admin: 03/05/21 10:25 Dose: 1 mg Documented by: Furosemide (Furosemide 20 Mg Tab) 20 mg PO QDAY [facility] Hydromorphone HCl (Hydromorphone 1 Mg/1 Ml Inj) 0.5 mg IV Q3H PRN PRN Reason: Pain , Severe (7-10) Last Admin: 03/05/21 04:52 Dose: 0.5 mg Documented by: Ceftriaxone Sodium 500 mg/ (Sodium Chloride) 50 mls @ 100 mls/hr IV Q24H [facility]; Protocol Stop: 03/11/21 12:59 Last Admin: 03/05/21 13:31 Dose: 100 mls/hr Documented by: Ondansetron HCl (Ondansetron 4 Mg/2 Ml Inj) 4 mg IV Q8H PRN PRN Reason: Nausea And Vomiting Oxycodone/Acetaminophen (Oxycodone /Acetaminophen 5-325mg Tab) 1 tab PO Q6H PRN PRN Reason: Pain, Moderate (4-6) Pantoprazole Sodium (Pantoprazole 40 Mg Tab) 40 mg PO QDAC [facility] Prednisone (Prednisone 20 Mg Tab) 20 mg PO QDAY [facility] Quetiapine Fumarate (Quetiapine 25 Mg Tab) 50 mg PO QHS [facility] Sodium Chloride (Sodium Chloride 0.9% 10 Ml Flush Syringe) 10 ml IV BID [facility] Last Admin: 03/05/21 10:17 Dose: Not Given Documented by: Sodium Chloride (Sodium Chloride 0.9% 10 Ml Flush Syringe) 10 ml IV PRN PRN PRN Reason: LINE FLUSH Spironolactone (Spironolactone 50 Mg Tab) 50 mg PO QDAY [facility] Last Admin: 03/05/21 11:04 Dose: 50 mg Documented by: Spironolactone (Spironolactone 25 Mg Tab) 25 mg PO QDAY [facility] Thiamine HCl (Thiamine 100 Mg Tab) 100 mg PO QDAY [facility] Last Admin: 03/05/21 11:05 Dose: 100 mg Documented by: I HAVE REVIEWED/RECONCILED MEDICATIONS Review of Systems - Review of Systems All systems: negative (as noted in the HPI) Exam - Constitutional Vital Signs: Temp Pulse Resp BP Pulse Ox 97.7 F 85 16 141/86 99 03/04/21 20:01 03/05/21 14:16 03/05/21 14:16 03/05/21 14:16 03/05/21 14:16 General appearance: no acute distress - EENT Eyes: PERRL, EOM intact, scleral icterus ENT: hearing intact, clear oral mucosa, no thrush - Neck Neck: supple, normal ROM - Respiratory Respiratory effort: normal Respiratory: bilateral: CTA - Cardiovascular Rhythm: regular Heart Sounds: Present: S1 & S2 Extremities: no ischemia Extremity abnormal: edema (3+ pitting edema) - Gastrointestinal General gastrointestinal: Present: soft, non-tender, distended (Mild to moderate ascites) - Integumentary Integumentary: Present: clear, warm, dry - Neurologic Neurological: alert and oriented x3, other (No tremors or asterixis) - Labs CBC & Chem 7: 03/04/21 20:53 03/04/21 20:53 Lab Results: Laboratory Results - last 24 hr 03/04/21 03/04/21 03/04/21 20:53 20:53 20:53 WBC 12.0 H RBC 2.44 L Hgb 9.4 L Hct 26.2 L MCV 108 H MCH 39 H MCHC 36 H RDW 20.7 H Plt Count 107 L Add Manual Diff Complete Total Counted 100 Seg Neuts % (Manual) 81.0 H Lymphocytes % (Manual) 17.0 Monocytes % (Manual) 2.0 Nucleated RBC % Not Reportable Seg Neutrophils # Man 9.7 H Band Neutrophils # 0.0 Lymphocytes # (Manual) 2.0 Abs React Lymphs (Man) 0.0 Monocytes # (Manual) 0.2 Eosinophils # (Manual) 0.0 Basophils # (Manual) 0.0 Metamyelocytes # 0.0 Myelocytes # 0.0 Promyelocytes # 0.0 Blast Cells # 0.0 WBC Morphology Not Reportable Hypersegmented Neuts Not Reportable Hyposegmented Neuts Not Reportable Hypogranular Neuts Not Reportable Smudge Cells Not Reportable Toxic Granulation Not Reportable Toxic Vacuolation Not Reportable Dohle Bodies Not Reportable Pelger-[place]uet Anomaly Not Reportable Pita Rods Not Reportable Platelet Estimate Consistent w auto Clumped Platelets Not Reportable Plt Clumps, EDTA Not Reportable Large Platelets Not Reportable Giant Platelets Not Reportable Platelet Satelliting Not Reportable Plt Morphology Comment Not Reportable RBC Morphology Not Reportable Dimorphic RBCs Not Reportable Polychromasia Not Reportable Hypochromasia Not Reportable Poikilocytosis Not Reportable Anisocytosis 1+ Microcytosis Not Reportable Macrocytosis Not Reportable Spherocytes Not Reportable Pappenheimer Bodies Not Reportable Sickle Cells Not Reportable Target Cells Not Reportable Tear Drop Cells Few Ovalocytes Not Reportable Helmet Cells Not Reportable [place] Bodies Not Reportable [place] Rings Not Reportable [place] Cells 1+ Bite Cells Not Reportable Crenated Cell Not Reportable Elliptocytes Not Reportable Acanthocytes (Spur) Not Reportable Rouleaux Not Reportable Hemoglobin C Crystals Not Reportable Schistocytes Few Malaria parasites Not Reportable Kp Bodies Not Reportable Hem Pathologist Commnt No PT 16.7 H INR 1.29 H APTT 27.0 Sodium 123 L Potassium 5.5 H Chloride 97.9 L Carbon Dioxide 11 L Anion Gap 20 BUN 32 H Creatinine 0.3 L Estimated GFR > 60 BUN/Creatinine Ratio 107 Glucose 148 H Calcium 9.8 Total Bilirubin 18.90 H AST 113 H ALT 147 H Alkaline Phosphatase 164 H Ammonia Total Protein 7.0 Albumin 2.9 L Albumin/Globulin Ratio 0.7 Plasma/Serum Alcohol 03/04/21 03/04/21 20:53 20:53 WBC RBC Hgb Hct MCV MCH MCHC RDW Plt Count Add Manual Diff Total Counted Seg Neuts % (Manual) Lymphocytes % (Manual) Monocytes % (Manual) Nucleated RBC % Seg Neutrophils # Man Band Neutrophils # Lymphocytes # (Manual) Abs React Lymphs (Man) Monocytes # (Manual) Eosinophils # (Manual) Basophils # (Manual) Metamyelocytes # Myelocytes # Promyelocytes # Blast Cells # WBC Morphology Hypersegmented Neuts Hyposegmented Neuts Hypogranular Neuts Smudge Cells Toxic Granulation Toxic Vacuolation Dohle Bodies Pelger-Huet Anomaly Pita Rods Platelet Estimate Clumped Platelets Plt Clumps, EDTA Large Platelets Giant Platelets Platelet Satelliting Plt Morphology Comment RBC Morphology Dimorphic RBCs Polychromasia Hypochromasia Poikilocytosis Anisocytosis Microcytosis Macrocytosis Spherocytes Pappenheimer Bodies Sickle Cells Target Cells Tear Drop Cells Ovalocytes Helmet Cells [place] Bodies [place] Rings J[place] Cells Bite Cells Crenated Cell Elliptocytes Acanthocytes (Spur) Rouleaux Hemoglobin C Crystals Schistocytes Malaria parasites Kp Bodies Hem Pathologist Commnt PT INR APTT Sodium Potassium Chloride Carbon Dioxide Anion Gap BUN Creatinine Estimated GFR BUN/Creatinine Ratio Glucose Calcium Total Bilirubin AST ALT Alkaline Phosphatase Ammonia 57.0 Total Protein Albumin Albumin/Globulin Ratio Plasma/Serum Alcohol < 0.01 Assessment and Plan - Patient Problems (1) Alcoholic cirrhosis of liver with ascites Current Visit: Yes Status: Acute Plan to address problem: - Will adjust her diuretics to lasix/aldactone combination - Add albumin x 3 doses to facilitate - Decrease prednisone to 20mg/day as she has been on 40mg/day for a month - Low salt/cardiac style diet - Protonix and MVI therapy - No need for lactulose or xifaxan at present - Will monitor results of paracentesis, but from our standpoint, the patient could be discharged home if doing well after the procedure.
[2021-03-05] MEDS: MULTIVITAMINS ,THERAPEUTIC TAB PO SCH (18:34)
[2021-03-05] MEDS: predniSONE 20 MG TAB PO SCH (18:34)
[2021-03-05] MEDS ORDERED: QUETIAPINE 50 MG PO SCH (22:00)
[2021-03-05] MEDS: QUEtiapine 25 MG TAB PO SCH (23:00)
[2021-03-05] MEDS: ALBUMIN HUMAN 25% (25 GM/100 ML) INJ IV SCH (23:00)
[2021-03-06 05:03] LABS: Hematocrit 27.1 % (30.3-42.9); Hemoglobin 9.3 gm/dl (10.1-14.3); Mean Corpuscular HGB Conc 34 % (30-34); Mean Corpuscular Volume 99 fl (79-97); Red Blood Count 2.73 M/mm3 (3.65-5.03)
[2021-03-06 05:07] LABS: Platelet Count 77 K/mm3 (140-440); Red Cell Distribution Width 20.3 % (13.2-15.2)
[2021-03-06] MEDS ORDERED: diphenhydrAMINE 50 MG/ML VIAL IV ONE (05:15)
[2021-03-06 05:21] LABS: Blood Urea Nitrogen 41 mg/dL (7-17); Calcium 9.8 mg/dL (8.4-10.2); Hemolysis Index 38
[2021-03-06 05:25] LABS: BUN/Creatinine Ratio 103
[2021-03-06 05:54] LABS: Anisocytosis 1+; Band Neutrophils # (Manual) 0.2 K/mm3; Total Cells Counted 100
[2021-03-06 05:55] LABS: Burr Cells Few; Platelet Estimate Consistent w Auto; Poikilocytosis 1+; Tear Drop Cells Few
[2021-03-06] MEDS: IPRATROPIUM/ALBUTEROL SULFATE 3 ML AMPUL.NEB IH SCH ×4 (06:10→22:39)
[2021-03-06] MEDS: ALBUMIN HUMAN 25% (25 GM/100 ML) INJ IV SCH ×2 (07:31→13:55)
[2021-03-06] MEDS: PANTOPRAZOLE 40 MG TAB PO SCH (07:31)
[2021-03-06] MEDS: HYDROmorphone 1 MG/1 ML INJ IV PRN ×3 (07:44→19:50)
[2021-03-06] MEDS: FUROSEMIDE 20 MG TAB PO SCH (11:09)
[2021-03-06] MEDS: predniSONE 20 MG TAB PO SCH (11:09)
[2021-03-06] MEDS: MULTIVITAMINS ,THERAPEUTIC TAB PO SCH (11:09)
[2021-03-06] MEDS: SPIRONOLACTONE 25 MG TAB PO SCH (11:09)
[2021-03-06 12:18] LABS: Chloride, Urine 21.2 mmolL (110-250)
[2021-03-06] MEDS: diphenhydrAMINE 50 MG/ML VIAL IV PRN ×2 (13:40→19:51)
[2021-03-06] MEDS ORDERED: cefTRIAXone/NS 1 GM/50 ML 1 GM/50 ML BAG IV ONE (13:40)
--- NOTE | 2021-03-06 15:26 | Progress Note ---
Assessment and Plan Assessment and plan: #Decompensated alcoholic cirrhosis with anasarca #Volume overload #Alcohol dependence -Initiated fluid restriction of 1.5 L/day and IV Lasix 40 mg x 1 in the ED -GI consulted; pending recs -Interventional radiology consulted for possible diagnostic versus therapeutic paracentesis; pending recs -Started on ceftriaxone 1 g daily for SBP prophylaxis -Continue with thiamine and folic acid -Placed on cardiac diet -Counseled on alcohol cessation; patient expressed understanding #Acute hypoxic respiratory failure -Patient requiring 3 L nasal cannula (no oxygen requirement at home); wean as tolerated -Continue with albuterol nebulizers as needed and DuoNeb as needed -She will improved with continue diuresis -We will continue to monitor #Hyperkalemia-improved -Potassium 5 -Received Kayexalate 30 g by mouth x1 in the ED #Hyponatremia-improved -Na 127 -Etiology unknown but could be secondary to volume overload -We will order urine osmolality, urine sodium, urine chloride, and urine potassium -We will continue to monitor #UTI -Previously diagnosed with a UTI at outside facility and discharged with p.o. cefdinir 300 mg twice daily x10 days; however, patient was admitted to before initiation -Gram-negative bacteria will be covered with administration of ceftriaxone while inpatient. Will need to complete a 10-day course. If discharged prior to 10 days, patient can continue with remaining cefdinir. #Anxiety -Continue home quetiapine 50 mg at night #DVT prophylaxis -Patient declined chemical prophylaxis; continue with SCDs bilaterally Disposition Plan: Continue medical management History Interval history: No acute events overnight. Hospitalist Physical - Constitutional Vitals: Temp Pulse Resp BP Pulse Ox 97.7 F 90 19 132/88 98 03/04/21 20:01 03/06/21 11:09 03/06/21 10:39 03/06/21 11:09 03/06/21 10:39 General appearance: Present: no acute distress, well-nourished - EENT Eyes: Present: EOM intact, scleral icterus ENT: hearing intact, clear oral mucosa, dentition normal - Neck Neck: Present: supple, normal ROM - Respiratory Respiratory effort: normal - Cardiovascular Rhythm: regular Heart Sounds: Present: S1 & S2 - Extremities Extremities: no ischemia, pulses intact, pulses symmetrical, normal temperature, normal color Extremity abnormal: edema (Diffuse anasarca) Peripheral Pulses: within normal limits - Abdominal General gastrointestinal: soft, non-tender, distended, normal bowel sounds - Integumentary Integumentary: Present: warm, dry, jaundice - Psychiatric Psychiatric: appropriate mood/affect, intact judgment & insight, memory intact, cooperative - Neurologic Neurologic: CNII-XII intact, moves all extremities (Negative for asterixis) - Allied Health Allied health notes reviewed: nursing HEART Score - HEART Score EKG: Non-specific Age: 45-65 Risk factors: 1-2 risk factors - Critical Actions Critical Actions: 4-6 pts:12-16.6% risk of adverse cardiac event. Should be admitted Results - Labs CBC & Chem 7: 03/06/21 04:29 03/06/21 04:29 Labs: Laboratory Last Values WBC 8.2 K/mm3 (4.5-11.0) 03/06/21 04:29 RBC 2.73 M/mm3 (3.65-5.03) L 03/06/21 04:29 Hgb 9.3 gm/dl (10.1-14.3) L 03/06/21 04:29 Hct 27.1 % (30.3-42.9) L 03/06/21 04:29 MCV 99 fl (79-97) H 03/06/21 04:29 MCH 34 pg (28-32) H 03/06/21 04:29 MCHC 34 % (30-34) 03/06/21 04:29 RDW 20.3 % (13.2-15.2) H 03/06/21 04:29 Plt Count 77 K/mm3 (140-440) L 03/06/21 04:29 Add Manual Diff Complete 03/06/21 04:29 Total Counted 100 03/06/21 04:29 Seg Neuts % (Manual) 76.0 % (40.0-70.0) H 03/06/21 04:29 Band Neutrophils % 2.0 % 03/06/21 04:29 Lymphocytes % (Manual) 17.0 % (13.4-35.0) 03/06/21 04:29 Monocytes % (Manual) 3.0 % (0.0-7.3) 03/06/21 04:29 Metamyelocytes % 2.0 % 03/06/21 04:29 Nucleated RBC % Not Reportable 03/06/21 04:29 Seg Neutrophils # Man 6.2 K/mm3 (1.8-7.7) 03/06/21 04:29 Band Neutrophils # 0.2 K/mm3 03/06/21 04:29 Lymphocytes # (Manual) 1.4 K/mm3 (1.2-5.4) 03/06/21 04:29 Abs React Lymphs (Man) 0.0 K/mm3 03/06/21 04:29 Monocytes # (Manual) 0.2 K/mm3 (0.0-0.8) 03/06/21 04:29 Eosinophils # (Manual) 0.0 K/mm3 (0.0-0.4) 03/06/21 04:29 Basophils # (Manual) 0.0 K/mm3 (0.0-0.1) 03/06/21 04:29 Metamyelocytes # 0.2 K/mm3 03/06/21 04:29 Myelocytes # 0.0 K/mm3 03/06/21 04:29 Promyelocytes # 0.0 K/mm3 03/06/21 04:29 Blast Cells # 0.0 K/mm3 03/06/21 04:29 WBC Morphology Not Reportable 03/06/21 04:29 Hypersegmented Neuts Not Reportable 03/06/21 04:29 Hyposegmented Neuts Not Reportable 03/06/21 04:29 Hypogranular Neuts Not Reportable 03/06/21 04:29 Smudge Cells Not Reportable 03/06/21 04:29 Toxic Granulation Not Reportable 03/06/21 04:29 Toxic Vacuolation Not Reportable 03/06/21 04:29 Dohle Bodies Not Reportable 03/06/21 04:29 Pelger-Huet Anomaly Not Reportable 03/06/21 04:29 Pita Rods Not Reportable 03/06/21 04:29 Platelet Estimate Consistent w auto 03/06/21 04:29 Clumped Platelets Not Reportable 03/06/21 04:29 Plt Clumps, EDTA Not Reportable 03/06/21 04:29 Large Platelets Not Reportable 03/06/21 04:29 Giant Platelets Not Reportable 03/06/21 04:29 Platelet Satelliting Not Reportable 03/06/21 04:29 Plt Morphology Comment Not Reportable 03/06/21 04:29 RBC Morphology Not Reportable 03/06/21 04:29 Dimorphic RBCs Not Reportable 03/06/21 04:29 Polychromasia Not Reportable 03/06/21 04:29 Hypochromasia Not Reportable 03/06/21 04:29 Poikilocytosis 1+ 03/06/21 04:29 Anisocytosis 1+ 03/06/21 04:29 Microcytosis Not Reportable 03/06/21 04:29 Macrocytosis Not Reportable 03/06/21 04:29 Spherocytes Not Reportable 03/06/21 04:29 Pappenheimer Bodies Not Reportable 03/06/21 04:29 Sickle Cells Not Reportable 03/06/21 04:29 Target Cells Not Reportable 03/06/21 04:29 Tear Drop Cells Few 03/06/21 04:29 Ovalocytes Not Reportable 03/06/21 04:29 Helmet Cells Not Reportable 03/06/21 04:29 [place] Bodies Not Reportable 03/06/21 04:29 [place] Rings Not Reportable 03/06/21 04:29 Jd Cells Few 03/06/21 04:29 Bite Cells Not Reportable 03/06/21 04:29 Crenated Cell Not Reportable 03/06/21 04:29 Elliptocytes Few 03/06/21 04:29 Acanthocytes (Spur) Not Reportable 03/06/21 04:29 Rouleaux Not Reportable 03/06/21 04:29 Hemoglobin C Crystals Not Reportable 03/06/21 04:29 Schistocytes Not Reportable 03/06/21 04:29 Malaria parasites Not Reportable 03/06/21 04:29 Kp Bodies Not Reportable 03/06/21 04:29 Hem Pathologist Commnt No 03/06/21 04:29 PT 16.7 Sec. (12.2-14.9) H 03/04/21 20:53 INR 1.29 (0.87-1.13) H 03/04/21 20:53 APTT 27.0 Sec. (24.2-36.6) 03/04/21 20:53 Sodium 127 mmol/L (137-145) L 03/06/21 04:29 Potassium 5.0 mmol/L (3.6-5.0) 03/06/21 04:29 Chloride 97.8 mmol/L (98-107) L 03/06/21 04:29 Carbon Dioxide 17 mmol/L (22-30) L 03/06/21 04:29 Anion Gap 17 mmol/L 03/06/21 04:29 BUN 41 mg/dL (7-17) H 03/06/21 04:29 Creatinine 0.4 mg/dL (0.6-1.2) L 03/06/21 04:29 Estimated GFR > 60 ml/min 03/06/21 04:29 BUN/Creatinine Ratio 103 % 03/06/21 04:29 Glucose 137 mg/dL (65-100) H 03/06/21 04:29 Calcium 9.8 mg/dL (8.4-10.2) 03/06/21 04:29 Phosphorus 5.50 mg/dL (2.5-4.5) H 03/06/21 04:29 Magnesium 2.30 mg/dL (1.7-2.3) 03/06/21 04:29 Total Bilirubin 18.90 mg/dL (0.1-1.2) H 03/04/21 20:53 AST 113 units/L (5-40) H 03/04/21 20:53 ALT 147 units/L (7-56) H 03/04/21 20:53 Alkaline Phosphatase 164 units/L (35-129) H 03/04/21 20:53 Ammonia 57.0 umol/L (25-60) 03/04/21 20:53 Total Protein 7.0 g/dL (6.3-8.2) 03/04/21 20:53 Albumin 2.9 g/dL (3.9-5) L 03/04/21 20:53 Albumin/Globulin Ratio 0.7 % 03/04/21 20:53 Urine Osmolality 424 Mosm/kg 03/06/21 11:09 Urine Sodium 71 mmol/L 03/06/21 11:09 Urine Potassium 20.61 mmol/L 03/06/21 11:09 Urine Chloride 21.2 mmolL (110-250) L 03/06/21 11:09 Plasma/Serum Alcohol < 0.01 % (0-0.07) 03/04/21 20:53 Active Medications - Current Medications Current Medications: Generic Name Dose Route Start Last Admin Trade Name Freq PRN Reason Stop Dose Admin Acetaminophen 650 mg 03/05/21 03:35 Acetaminophen 325 Mg Tab PO Q4H PRN Pain MILD(1-3)/Fever >100.5/SIM Albuterol 2.5 mg 03/05/21 03:35 Albuterol 2.5 Mg/3 Ml Nebu IH Q4HRT PRN Shortness Of Breath Albuterol/Ipratropium 1 ampul 03/05/21 08:00 03/06/21 14:19 Ipratropium/Albuterol Sulfate 3 Ml Ampul.Neb IH Not Given Q6HRT LUCERO Diphenhydramine HCl 25 mg 03/06/21 12:33 03/06/21 13:40 Diphenhydramine 50 Mg/Ml Vial IV 25 mg Q6H PRN Administration Itching Furosemide 20 mg 03/06/21 10:00 03/06/21 11:09 Furosemide 20 Mg Tab PO 20 mg QDAY LUCERO Administration Hydromorphone HCl 0.5 mg 03/05/21 03:35 03/06/21 13:57 Hydromorphone 1 Mg/1 Ml Inj IV 0.5 mg Q3H PRN Administration Pain , Severe (7-10) Ceftriaxone Sodium 500 mg/ 50 mls @ 100 mls/hr 03/05/21 13:00 03/06/21 13:41 Sodium Chloride IV 03/11/21 12:59 100 mls/hr Q24H LUCERO Administration Protocol Multivitamins 1 each 03/05/21 18:00 03/06/21 11:09 Multivitamins ,Therapeutic Tab PO 1 each QDAY LUCERO Administration Ondansetron HCl 4 mg 03/05/21 03:35 Ondansetron 4 Mg/2 Ml Inj IV Q8H PRN Nausea And Vomiting Oxycodone/Acetaminophen 1 tab 03/05/21 03:35 Oxycodone /Acetaminophen 5-325mg Tab PO Q6H PRN Pain, Moderate (4-6) Pantoprazole Sodium 40 mg 03/06/21 07:30 03/06/21 07:31 Pantoprazole 40 Mg Tab PO 40 mg QDAC LUCERO Administration Prednisone 20 mg 03/05/21 16:00 03/06/21 11:09 Prednisone 20 Mg Tab PO 20 mg QDAY LUCERO Administration Quetiapine Fumarate 50 mg 03/05/21 22:00 03/05/21 23:00 Quetiapine 25 Mg Tab PO 50 mg QHS LUCERO Administration Sodium Chloride 10 ml 03/05/21 10:00 03/06/21 10:08 Sodium Chloride 0.9% 10 Ml Flush Syringe IV 10 ml BID LUCERO Administration Sodium Chloride 10 ml 03/05/21 03:35 Sodium Chloride 0.9% 10 Ml Flush Syringe IV PRN PRN LINE FLUSH Spironolactone 25 mg 03/06/21 10:00 03/06/21 11:09 Spironolactone 25 Mg Tab PO 25 mg QDAY LUCERO Administration
--- NOTE | 2021-03-06 15:29 | Gastroenterology Progress Note ---
Assessment and Plan 1. Cirrhosis/? alc hepatitis (pt has been on steroids) 2. Anasarca/? ascites (minimal on exam) -pt awaiting diagnostic/therapeutic paracentesis. resume lactulose daily (goal of 2-3 bm's per day, she was previously on medication at home). trend liver enzymes. Subjective Date of service: 03/06/21 Principal diagnosis: cirrhosis/ascites Interval history: no events overnight, c/o abd discomfort (similar to admission). Objective - Exam Narrative Exam: gen: nad eyes: +++ icterus abd: soft, mild distention, non-tense - Constitutional Vitals: Temp Pulse Resp BP Pulse Ox 97.7 F 90 19 132/88 98 03/04/21 20:01 03/06/21 11:09 03/06/21 10:39 03/06/21 11:09 03/06/21 10:39 - Labs CBC & Chem 7: 03/06/21 04:29 03/06/21 04:29 Labs: Laboratory Results - last 24 hr 03/06/21 03/06/21 03/06/21 04:29 04:29 11:09 WBC 8.2 RBC 2.73 L Hgb 9.3 L Hct 27.1 L MCV 99 H MCH 34 H MCHC 34 RDW 20.3 H Plt Count 77 L Add Manual Diff Complete Total Counted 100 Seg Neuts % (Manual) 76.0 H Band Neutrophils % 2.0 Lymphocytes % (Manual) 17.0 Monocytes % (Manual) 3.0 Metamyelocytes % 2.0 Nucleated RBC % Not Reportable Seg Neutrophils # Man 6.2 Band Neutrophils # 0.2 Lymphocytes # (Manual) 1.4 Abs React Lymphs (Man) 0.0 Monocytes # (Manual) 0.2 Eosinophils # (Manual) 0.0 Basophils # (Manual) 0.0 Metamyelocytes # 0.2 Myelocytes # 0.0 Promyelocytes # 0.0 Blast Cells # 0.0 WBC Morphology Not Reportable Hypersegmented Neuts Not Reportable Hyposegmented Neuts Not Reportable Hypogranular Neuts Not Reportable Smudge Cells Not Reportable Toxic Granulation Not Reportable Toxic Vacuolation Not Reportable Dohle Bodies Not Reportable Pelger-Huet Anomaly Not Reportable Pita Rods Not Reportable Platelet Estimate Consistent w auto Clumped Platelets Not Reportable Plt Clumps, EDTA Not Reportable Large Platelets Not Reportable Giant Platelets Not Reportable Platelet Satelliting Not Reportable Plt Morphology Comment Not Reportable RBC Morphology Not Reportable Dimorphic RBCs Not Reportable Polychromasia Not Reportable Hypochromasia Not Reportable Poikilocytosis 1+ Anisocytosis 1+ Microcytosis Not Reportable Macrocytosis Not Reportable Spherocytes Not Reportable Pappenheimer Bodies Not Reportable Sickle Cells Not Reportable Target Cells Not Reportable Tear Drop Cells Few Ovalocytes Not Reportable Helmet Cells Not Reportable [place] Bodies Not Reportable [place] Rings Not Reportable [place] Cells Few Bite Cells Not Reportable Crenated Cell Not Reportable Elliptocytes Few Acanthocytes (Spur) Not Reportable Rouleaux Not Reportable Hemoglobin C Crystals Not Reportable Schistocytes Not Reportable Malaria parasites Not Reportable Kp Bodies Not Reportable Hem Pathologist Commnt No Sodium 127 L Potassium 5.0 Chloride 97.8 L Carbon Dioxide 17 L Anion Gap 17 BUN 41 H Creatinine 0.4 L Estimated GFR > 60 BUN/Creatinine Ratio 103 Glucose 137 H Calcium 9.8 Phosphorus 5.50 H Magnesium 2.30 Urine Osmolality 424 Urine Sodium 71 Urine Potassium 20.61 Urine Chloride 21.2 L
[2021-03-06] MEDS: QUEtiapine 25 MG TAB PO SCH (22:55)
[2021-03-07] MEDS: HYDROmorphone 1 MG/1 ML INJ IV PRN ×6 (00:18→21:53)
[2021-03-07] MEDS: diphenhydrAMINE 50 MG/ML VIAL IV PRN ×4 (05:21→21:54)
[2021-03-07 05:53] LABS: Basophils # (Auto) 0.1 K/mm3 (0.0-0.1); Basophils % (Auto) 0.7 % (0.0-1.8); Hemoglobin 9.7 gm/dl (10.1-14.3); Lymphocytes # (Auto) 1.4 K/mm3 (1.2-5.4); Lymphocytes % (Auto) 16.4 % (13.4-35.0); Mean Corpuscular HGB Conc 35 % (30-34); Mean Corpuscular Volume 99 fl (79-97); Monocytes # (Auto) 0.4 K/mm3 (0.0-0.8); Red Blood Count 2.82 M/mm3 (3.65-5.03)
[2021-03-07 05:57] LABS: Red Cell Distribution Width 20.3 % (13.2-15.2)
[2021-03-07 06:14] LABS: BUN/Creatinine Ratio 46; Blood Urea Nitrogen 37 mg/dL (7-17); Calcium 10.1 mg/dL (8.4-10.2); Hemolysis Index 0
[2021-03-07] MEDS: PANTOPRAZOLE 40 MG TAB PO SCH (08:10)
[2021-03-07 08:20] LABS: Platelet Count 81 K/mm3 (140-440)
[2021-03-07] MEDS: SPIRONOLACTONE 25 MG TAB PO SCH (09:32)
[2021-03-07] MEDS: MULTIVITAMINS ,THERAPEUTIC TAB PO SCH (09:32)
[2021-03-07] MEDS: predniSONE 20 MG TAB PO SCH (09:32)
[2021-03-07] MEDS: FUROSEMIDE 20 MG TAB PO SCH (09:32)
[2021-03-07] MEDS: oxyCODONE /ACETAMINOPHEN 5-325MG TAB PO PRN (09:32)
[2021-03-07] MEDS ORDERED: LACTULOSE 20 GM/30 ML ORAL LIQD PO SCH (10:00)
[2021-03-07] MEDS: IPRATROPIUM/ALBUTEROL SULFATE 3 ML AMPUL.NEB IH SCH ×3 (10:19→16:02)
--- NOTE | 2021-03-07 12:11 | Gastroenterology Progress Note ---
Assessment and Plan 1. Cirrhosis/? alc hepatitis (pt has been on steroids) 2. Anasarca/? ascites (minimal on exam) 3. Hepatic encephalopathy - mild asterexis on exam, conversing appropriately. no bm's since admission -increase lactulose dosing with goal of 2-3 bm's per day. awaiting paracentesis tomorrow. check liver enzymes/trend levels. can be discharged from gi stand point after paracentesis with close outpatient follow-up with pt's primary GI physicians. Subjective Date of service: 03/07/21 Principal diagnosis: cirrhosis/ascites Interval history: c/o generalized weakness, tolerated breakfast this morning. no bm's since admission. discomfort related to abd distention Objective - Exam Narrative Exam: gen: nad, chronically ill appearing Eyes: + icterus abd: soft, mild dist, diffuse mild ttp - Constitutional Vitals: Temp Pulse Resp BP Pulse Ox 97.8 F 105 H 20 120/71 97 03/07/21 08:06 03/07/21 10:00 03/07/21 10:09 03/07/21 08:06 03/07/21 10:09 - Labs CBC & Chem 7: 03/07/21 04:26 03/07/21 04:26 Labs: Laboratory Results - last 24 hr 03/06/21 03/07/21 03/07/21 11:09 04:26 04:26 WBC 8.4 RBC 2.82 L Hgb 9.7 L Hct 28.0 L MCV 99 H MCH 34 H MCHC 35 H RDW 20.3 H Plt Count 81 L Lymph % (Auto) 16.4 [place] % (Auto) 5.0 Eos % (Auto) 0.0 Baso % (Auto) 0.7 Lymph # (Auto) 1.4 [place] # (Auto) 0.4 Eos # (Auto) 0.0 Baso # (Auto) 0.1 Seg Neutrophils % 77.9 H Seg Neutrophils # 6.5 Sodium 130 L Potassium 4.8 Chloride 99.2 Carbon Dioxide 18 L Anion Gap 18 BUN 37 H Creatinine 0.8 D Estimated GFR > 60 BUN/Creatinine Ratio 46 Glucose 152 H Calcium 10.1 Phosphorus 3.40 D Magnesium 2.10 Urine Osmolality 424 Urine Sodium 71 Urine Potassium 20.61 Urine Chloride 21.2 L
[2021-03-07] MEDS: LACTULOSE 20 GM/30 ML ORAL LIQD PO SCH ×2 (13:39→21:52)
--- NOTE | 2021-03-07 16:35 | Progress Note ---
Assessment and Plan Assessment and plan: #Decompensated alcoholic cirrhosis with ascites #Volume overload #Alcohol dependence -Initiated fluid restriction of 1.5 L/day and IV Lasix 40 mg x 1 in the ED -GI consulted; pending recs -Interventional radiology consulted for possible diagnostic versus therapeutic paracentesis; plan for 03/08/2021 -Continue ceftriaxone 1 g daily for SBP prophylaxis (started 03/05/2021). If unable to perform diagnostic/therapeutic paracentesis on 03/08/2021, patient will be empirically treated for SBP and discharged home. Will compliance counsel patient on close follow-up with GI (at [place]). -Increase Kayexalate to 3 times daily with goal of 2-3 bowel movements per day -Continue with thiamine and folic acid -Placed on cardiac diet -Counseled on alcohol cessation; patient expressed understanding #Acute hypoxic respiratory failure -Patient requiring 3 L nasal cannula (no oxygen requirement at home); wean as tolerated -Continue with albuterol nebulizers as needed and DuoNeb as needed -She will improved with continue diuresis -We will continue to monitor #Hyperkalemia-resolved -Potassium 4.8 -Received Kayexalate 30 g by mouth x1 in the ED #Hyponatremia-improved -Na 130 -Etiology unknown but could be secondary to volume overload -We will order urine osmolality, urine sodium, urine chloride, and urine potassium -We will continue to monitor #UTI -Previously diagnosed with a UTI at outside facility and discharged with p.o. cefdinir 300 mg twice daily x10 days; however, patient was admitted to before initiation -Gram-negative bacteria will be covered with administration of ceftriaxone while inpatient. Will need to complete a 10-day course. If discharged prior to 10 days, patient can continue with remaining cefdinir. #Anxiety -Continue home quetiapine 50 mg at night #DVT prophylaxis -Patient declined chemical prophylaxis; continue with SCDs bilaterally Disposition Plan: Continue medical management Total Time Spent with Patient (Minutes): 30 History Interval history: No acute events overnight. Hospitalist Physical - Constitutional Vitals: Temp Pulse Resp BP Pulse Ox 97.8 F 105 H 20 120/71 97 03/07/21 08:06 03/07/21 10:00 03/07/21 10:09 03/07/21 08:06 03/07/21 10:09 General appearance: Present: no acute distress, well-nourished - EENT Eyes: Present: EOM intact, scleral icterus ENT: hearing intact, clear oral mucosa, dentition normal - Neck Neck: Present: supple, normal ROM - Respiratory Respiratory effort: normal - Cardiovascular Rhythm: regular Heart Sounds: Present: S1 & S2 - Extremities Extremities: no ischemia, pulses intact, pulses symmetrical, normal temperature, normal color Extremity abnormal: edema (Trace edema to bilateral) Peripheral Pulses: within normal limits - Abdominal General gastrointestinal: soft, non-tender, distended, normal bowel sounds (Mildly distant) - Integumentary Integumentary: Present: warm, dry, jaundice - Psychiatric Psychiatric: appropriate mood/affect, intact judgment & insight, memory intact, cooperative - Neurologic Neurologic: CNII-XII intact - Allied Health Allied health notes reviewed: nursing HEART Score - HEART Score EKG: Non-specific Age: 45-65 Risk factors: 1-2 risk factors - Critical Actions Critical Actions: 4-6 pts:12-16.6% risk of adverse cardiac event. Should be admitted Results - Labs CBC & Chem 7: 03/07/21 04:26 03/07/21 04:26 Labs: Laboratory Last Values WBC 8.4 K/mm3 (4.5-11.0) 03/07/21 04:26 RBC 2.82 M/mm3 (3.65-5.03) L 03/07/21 04:26 Hgb 9.7 gm/dl (10.1-14.3) L 03/07/21 04:26 Hct 28.0 % (30.3-42.9) L 03/07/21 04:26 MCV 99 fl (79-97) H 03/07/21 04:26 MCH 34 pg (28-32) H 03/07/21 04:26 MCHC 35 % (30-34) H 03/07/21 04:26 RDW 20.3 % (13.2-15.2) H 03/07/21 04:26 Plt Count 81 K/mm3 (140-440) L 03/07/21 04:26 Lymph % (Auto) 16.4 % (13.4-35.0) 03/07/21 04:26 [place] % (Auto) 5.0 % (0.0-7.3) 03/07/21 04:26 Eos % (Auto) 0.0 % (0.0-4.3) 03/07/21 04:26 Baso % (Auto) 0.7 % (0.0-1.8) 03/07/21 04:26 Lymph # (Auto) 1.4 K/mm3 (1.2-5.4) 03/07/21 04:26 [place] # (Auto) 0.4 K/mm3 (0.0-0.8) 03/07/21 04:26 Eos # (Auto) 0.0 K/mm3 (0.0-0.4) 03/07/21 04:26 Baso # (Auto) 0.1 K/mm3 (0.0-0.1) 03/07/21 04:26 Add Manual Diff Complete 03/06/21 04:29 Total Counted 100 03/06/21 04:29 Seg Neutrophils % 77.9 % (40.0-70.0) H 03/07/21 04:26 Seg Neuts % (Manual) 76.0 % (40.0-70.0) H 03/06/21 04:29 Band Neutrophils % 2.0 % 03/06/21 04:29 Lymphocytes % (Manual) 17.0 % (13.4-35.0) 03/06/21 04:29 Monocytes % (Manual) 3.0 % (0.0-7.3) 03/06/21 04:29 Metamyelocytes % 2.0 % 03/06/21 04:29 Nucleated RBC % Not Reportable 03/06/21 04:29 Seg Neutrophils # 6.5 K/mm3 (1.8-7.7) 03/07/21 04:26 Seg Neutrophils # Man 6.2 K/mm3 (1.8-7.7) 03/06/21 04:29 Band Neutrophils # 0.2 K/mm3 03/06/21 04:29 Lymphocytes # (Manual) 1.4 K/mm3 (1.2-5.4) 03/06/21 04:29 Abs React Lymphs (Man) 0.0 K/mm3 03/06/21 04:29 Monocytes # (Manual) 0.2 K/mm3 (0.0-0.8) 03/06/21 04:29 Eosinophils # (Manual) 0.0 K/mm3 (0.0-0.4) 03/06/21 04:29 Basophils # (Manual) 0.0 K/mm3 (0.0-0.1) 03/06/21 04:29 Metamyelocytes # 0.2 K/mm3 03/06/21 04:29 Myelocytes # 0.0 K/mm3 03/06/21 04:29 Promyelocytes # 0.0 K/mm3 03/06/21 04:29 Blast Cells # 0.0 K/mm3 03/06/21 04:29 WBC Morphology Not Reportable 03/06/21 04:29 Hypersegmented Neuts Not Reportable 03/06/21 04:29 Hyposegmented Neuts Not Reportable 03/06/21 04:29 Hypogranular Neuts Not Reportable 03/06/21 04:29 Smudge Cells Not Reportable 03/06/21 04:29 Toxic Granulation Not Reportable 03/06/21 04:29 Toxic Vacuolation Not Reportable 03/06/21 04:29 Dohle Bodies Not Reportable 03/06/21 04:29 Pelger-Huet Anomaly Not Reportable 03/06/21 04:29 Pita Rods Not Reportable 03/06/21 04:29 Platelet Estimate Consistent w auto 03/06/21 04:29 Clumped Platelets Not Reportable 03/06/21 04:29 Plt Clumps, EDTA Not Reportable 03/06/21 04:29 Large Platelets Not Reportable 03/06/21 04:29 Giant Platelets Not Reportable 03/06/21 04:29 Platelet Satelliting Not Reportable 03/06/21 04:29 Plt Morphology Comment Not Reportable 03/06/21 04:29 RBC Morphology Not Reportable 03/06/21 04:29 Dimorphic RBCs Not Reportable 03/06/21 04:29 Polychromasia Not Reportable 03/06/21 04:29 Hypochromasia Not Reportable 03/06/21 04:29 Poikilocytosis 1+ 03/06/21 04:29 Anisocytosis 1+ 03/06/21 04:29 Microcytosis Not Reportable 03/06/21 04:29 Macrocytosis Not Reportable 03/06/21 04:29 Spherocytes Not Reportable 03/06/21 04:29 Pappenheimer Bodies Not Reportable 03/06/21 04:29 Sickle Cells Not Reportable 03/06/21 04:29 Target Cells Not Reportable 03/06/21 04:29 Tear Drop Cells Few 03/06/21 04:29 Ovalocytes Not Reportable 03/06/21 04:29 Helmet Cells Not Reportable 03/06/21 04:29 [place] Bodies Not Reportable 03/06/21 04:29 [place] Rings Not Reportable 03/06/21 04:29 [place] Cells Few 03/06/21 04:29 Bite Cells Not Reportable 03/06/21 04:29 Crenated Cell Not Reportable 03/06/21 04:29 Elliptocytes Few 03/06/21 04:29 Acanthocytes (Spur) Not Reportable 03/06/21 04:29 Rouleaux Not Reportable 03/06/21 04:29 Hemoglobin C Crystals Not Reportable 03/06/21 04:29 Schistocytes Not Reportable 03/06/21 04:29 Malaria parasites Not Reportable 03/06/21 04:29 Kp Bodies Not Reportable 03/06/21 04:29 Hem Pathologist Commnt No 03/06/21 04:29 PT 16.7 Sec. (12.2-14.9) H 03/04/21 20:53 INR 1.29 (0.87-1.13) H 03/04/21 20:53 APTT 27.0 Sec. (24.2-36.6) 03/04/21 20:53 Sodium 130 mmol/L (137-145) L 03/07/21 04:26 Potassium 4.8 mmol/L (3.6-5.0) 03/07/21 04:26 Chloride 99.2 mmol/L (98-107) 03/07/21 04:26 Carbon Dioxide 18 mmol/L (22-30) L 03/07/21 04:26 Anion Gap 18 mmol/L 03/07/21 04:26 BUN 37 mg/dL (7-17) H 03/07/21 04:26 Creatinine 0.8 mg/dL (0.6-1.2) D 03/07/21 04:26 Estimated GFR > 60 ml/min 03/07/21 04:26 BUN/Creatinine Ratio 46 % 03/07/21 04:26 Glucose 152 mg/dL (65-100) H 03/07/21 04:26 Calcium 10.1 mg/dL (8.4-10.2) 03/07/21 04:26 Phosphorus 3.40 mg/dL (2.5-4.5) D 03/07/21 04:26 Magnesium 2.10 mg/dL (1.7-2.3) 03/07/21 04:26 Total Bilirubin 18.90 mg/dL (0.1-1.2) H 03/04/21 20:53 AST 113 units/L (5-40) H 03/04/21 20:53 ALT 147 units/L (7-56) H 03/04/21 20:53 Alkaline Phosphatase 164 units/L (35-129) H 03/04/21 20:53 Ammonia 57.0 umol/L (25-60) 03/04/21 20:53 Total Protein 7.0 g/dL (6.3-8.2) 03/04/21 20:53 Albumin 2.9 g/dL (3.9-5) L 03/04/21 20:53 Albumin/Globulin Ratio 0.7 % 03/04/21 20:53 Urine Osmolality 424 Mosm/kg 03/06/21 11:09 Urine Sodium 71 mmol/L 03/06/21 11:09 Urine Potassium 20.61 mmol/L 03/06/21 11:09 Urine Chloride 21.2 mmolL (110-250) L 03/06/21 11:09 Plasma/Serum Alcohol < 0.01 % (0-0.07) 03/04/21 20:53 Snowden/IV: Voiding Method Bedside Commode Active Medications - Current Medications Current Medications: Generic Name Dose Route Start Last Admin Trade Name Freq PRN Reason Stop Dose Admin Acetaminophen 650 mg 03/05/21 03:35 Acetaminophen 325 Mg Tab PO Q4H PRN Pain MILD(1-3)/Fever >100.5/SIM Albuterol 2.5 mg 03/05/21 03:35 Albuterol 2.5 Mg/3 Ml Nebu IH Q4HRT PRN Shortness Of Breath Albuterol/Ipratropium 1 ampul 03/05/21 08:00 03/07/21 16:02 Ipratropium/Albuterol Sulfate 3 Ml Ampul.Neb IH Not Given Q6HRT LUCERO Diphenhydramine HCl 25 mg 03/06/21 12:33 03/07/21 11:22 Diphenhydramine 50 Mg/Ml Vial IV 25 mg Q6H PRN Administration Itching Furosemide 20 mg 03/06/21 10:00 03/07/21 09:32 Furosemide 20 Mg Tab PO 20 mg QDAY LUCERO Administration Hydromorphone HCl 0.5 mg 03/05/21 03:35 03/07/21 12:00 Hydromorphone 1 Mg/1 Ml Inj IV 0.5 mg Q3H PRN Administration Pain , Severe (7-10) Ceftriaxone Sodium 500 mg/ 50 mls @ 100 mls/hr 03/05/21 13:00 03/07/21 13:38 Sodium Chloride IV 03/11/21 12:59 100 mls/hr Q24H LUCERO Administration Protocol Lactulose 20 gm 03/07/21 14:00 03/07/21 13:39 Lactulose 20 Gm/30 Ml Oral Liqd PO 20 gm TID LUCERO Administration Multivitamins 1 each 03/05/21 18:00 03/07/21 09:32 Multivitamins ,Therapeutic Tab PO 1 each QDAY LUCERO Administration Ondansetron HCl 4 mg 03/05/21 03:35 03/07/21 00:18 Ondansetron 4 Mg/2 Ml Inj IV 4 mg Q8H PRN Administration Nausea And Vomiting Oxycodone/Acetaminophen 1 tab 03/05/21 03:35 03/07/21 09:32 Oxycodone /Acetaminophen 5-325mg Tab PO 1 tab Q6H PRN Administration Pain, Moderate (4-6) Pantoprazole Sodium 40 mg 03/06/21 07:30 03/07/21 08:10 Pantoprazole 40 Mg Tab PO 40 mg QDAC LUCERO Administration Prednisone 20 mg 03/05/21 16:00 03/07/21 09:32 Prednisone 20 Mg Tab PO 20 mg QDAY LUCERO Administration Quetiapine Fumarate 50 mg 03/05/21 22:00 03/06/21 22:55 Quetiapine 25 Mg Tab PO 50 mg QHS LUCERO Administration Sodium Chloride 10 ml 03/05/21 10:00 03/07/21 09:43 Sodium Chloride 0.9% 10 Ml Flush Syringe IV Not Given BID LUCERO Sodium Chloride 10 ml 03/05/21 03:35 Sodium Chloride 0.9% 10 Ml Flush Syringe IV PRN PRN LINE FLUSH Spironolactone 25 mg 03/06/21 10:00 03/07/21 09:32 Spironolactone 25 Mg Tab PO 25 mg QDAY LUCERO Administration
[2021-03-07] MEDS: QUEtiapine 25 MG TAB PO SCH (21:54)
--- NOTE | 2021-03-07 22:37 | Event Note ---
Date: 03/07/21 Interventional radiology does not perform paracentesis. Please contact diagnostic radiology to arrange paracentesis. I placed the order to expedite care, but please order this in the future and coordinate it with diagnostic radiology. US paracentesis.
[2021-03-08] MEDS: HYDROmorphone 1 MG/1 ML INJ IV PRN ×4 (04:43→22:38)
[2021-03-08] MEDS: diphenhydrAMINE 50 MG/ML VIAL IV PRN ×3 (04:48→18:41)
[2021-03-08 06:28] LABS: Hemoglobin 10.4 gm/dl (10.1-14.3); Mean Corpuscular HGB Conc 35 % (30-34); Mean Corpuscular Volume 98 fl (79-97); Red Blood Count 3.05 M/mm3 (3.65-5.03)
[2021-03-08 06:40] LABS: Alanine Aminotransferase 157 units/L (7-56); Albumin 3.9 g/dL (3.9-5); Blood Urea Nitrogen 36 mg/dL (7-17); Calcium 10.6 mg/dL (8.4-10.2); Hemolysis Index 6
[2021-03-08 06:43] LABS: Red Cell Distribution Width 20.1 % (13.2-15.2)
[2021-03-08 07:29] LABS: BUN/Creatinine Ratio 51
[2021-03-08] MEDS: LACTULOSE 20 GM/30 ML ORAL LIQD PO SCH ×3 (09:04→22:38)
[2021-03-08] MEDS ORDERED: LORazepam 2 MG/ML VIAL IV NR (12:00)
[2021-03-08] MEDS: predniSONE 20 MG TAB PO SCH (12:03)
[2021-03-08] MEDS: MULTIVITAMINS ,THERAPEUTIC TAB PO SCH (12:03)
[2021-03-08] MEDS: FUROSEMIDE 20 MG TAB PO SCH (12:03)
[2021-03-08] MEDS: SPIRONOLACTONE 25 MG TAB PO SCH (12:04)
[2021-03-08] MEDS: PANTOPRAZOLE 40 MG TAB PO SCH (12:16)
--- NOTE | 2021-03-08 12:54 | Ultrasound Report ---
ULTRASOUND ABDOMEN, LIMITED INDICATION / CLINICAL INFORMATION: ascites, placed for hospitalist. COMPARISON: None available. FINDINGS: There is no sonographic evidence of ascites within the upper lower quadrants of the abdomen. IMPRESSION: 1. No ascites visualized. Scribed by: Nany Olivo RDMS, RVT Scribed: 03/08/2021 11:41 AM I have reviewed the images, agree with this report, and edited this report as needed. Signer Name: Jamar Best MD Signed: 03/08/2021 12:49 PM Workstation Name: [employer]
--- NOTE | 2021-03-08 13:21 | Progress Note ---
Assessment and Plan Assessment and plan: #Decompensated alcoholic cirrhosis with ascites #Volume overload-resolved #Alcohol dependence -Initiated fluid restriction of 1.5 L/day and IV Lasix 40 mg x 1 in the ED -GI consulted; pending recs -Interventional radiology consulted for possible diagnostic versus therapeutic paracentesis; plan for 03/08/2021 -Continue ceftriaxone 1 g daily for SBP prophylaxis (started 03/05/2021). Plan to continue empiric treatment and discharge on 03/09/2021 -Patient undergoing paracentesis (at 03/08/2021). Labs ordered for evaluation of ascitic fluid. -[facility] contacted provider on 03/02/2021 and indicated they would set up appointments. -Continue Kayexalate TID with goal of 2-3 bowel movements per day -Continue with thiamine and folic acid -Placed on cardiac diet -Counseled on alcohol cessation; patient expressed understanding #Acute hypoxic respiratory failure-resolved -Patient requiring 3 L nasal cannula (no oxygen requirement at home); wean as tolerated -Continue with albuterol nebulizers as needed and DuoNeb as needed -She will improved with continue diuresis -We will continue to monitor #Hyperkalemia-resolved -Potassium 4.8 -Received Kayexalate 30 g by mouth x1 in the ED #Hyponatremia-improved -Na 130 -Etiology unknown but could be secondary to volume overload -We will order urine osmolality, urine sodium, urine chloride, and urine potassium -We will continue to monitor #UTI -Previously diagnosed with a UTI at outside facility and discharged with p.o. cefdinir 300 mg twice daily x10 days; however, patient was admitted to before initiation -Gram-negative bacteria will be covered with administration of ceftriaxone while inpatient. Will need to complete a 10-day course. If discharged prior to 10 days, patient can continue with remaining cefdinir. #Anxiety -Continue home quetiapine 50 mg at night #DVT prophylaxis -Patient declined chemical prophylaxis; continue with SCDs bilaterally #Discharge planning -Patient will be discharged home on 03/08/2021. One of her daughters will pick her up. -Appointments with PCP and GI/hepatology will be made at [facility]. Disposition Plan: Pending possible discharge tomorrow Total Time Spent with Patient (Minutes): 40 History Interval history: No acute events overnight Hospitalist Physical - Constitutional Vitals: Temp Pulse Resp BP Pulse Ox 97.5 F L 103 H 18 117/74 100 03/08/21 07:43 03/08/21 07:43 03/08/21 07:43 03/08/21 07:43 03/08/21 07:43 General appearance: Present: no acute distress, well-nourished - EENT Eyes: Present: EOM intact, scleral icterus ENT: hearing intact, clear oral mucosa, dentition normal - Neck Neck: Present: supple, normal ROM - Respiratory Respiratory effort: normal - Cardiovascular Rhythm: regular Heart Sounds: Present: S1 & S2 - Extremities Extremities: no ischemia, pulses intact, pulses symmetrical, No edema, normal temperature, normal color Peripheral Pulses: within normal limits - Abdominal General gastrointestinal: soft, non-tender, normal bowel sounds - Integumentary Integumentary: Present: warm, dry, jaundice - Psychiatric Psychiatric: appropriate mood/affect, intact judgment & insight, cooperative - Neurologic Neurologic: CNII-XII intact, moves all extremities - Allied Health Allied health notes reviewed: nursing HEART Score - HEART Score EKG: Non-specific Age: 45-65 Risk factors: 1-2 risk factors - Critical Actions Critical Actions: 4-6 pts:12-16.6% risk of adverse cardiac event. Should be admitted Results - Labs CBC & Chem 7: 03/08/21 04:36 03/08/21 04:36 Labs: Laboratory Last Values WBC 11.1 K/mm3 (4.5-11.0) H 03/08/21 04:36 RBC 3.05 M/mm3 (3.65-5.03) L 03/08/21 04:36 Hgb 10.4 gm/dl (10.1-14.3) 03/08/21 04:36 Hct 30.0 % (30.3-42.9) L 03/08/21 04:36 MCV 98 fl (79-97) H 03/08/21 04:36 MCH 34 pg (28-32) H 03/08/21 04:36 MCHC 35 % (30-34) H 03/08/21 04:36 RDW 20.1 % (13.2-15.2) H 03/08/21 04:36 Plt Count 81 K/mm3 (140-440) L 03/07/21 04:26 Lymph % (Auto) 16.4 % (13.4-35.0) 03/07/21 04:26 [place] % (Auto) 5.0 % (0.0-7.3) 03/07/21 04:26 Eos % (Auto) 0.0 % (0.0-4.3) 03/07/21 04:26 Baso % (Auto) 0.7 % (0.0-1.8) 03/07/21 04:26 Lymph # (Auto) 1.4 K/mm3 (1.2-5.4) 03/07/21 04:26 [place] # (Auto) 0.4 K/mm3 (0.0-0.8) 03/07/21 04: Eos # (Auto) 0.0 K/mm3 (0.0-0.4) 03/07/21 04: Baso # (Auto) 0.1 K/mm3 (0.0-0.1) 03/07/21 04:26 Add Manual Diff Complete 03/06/21 04:29 Total Counted 100 03/06/21 04:29 Seg Neutrophils % 77.9 % (40.0-70.0) H 03/07/21 04:26 Seg Neuts % (Manual) 76.0 % (40.0-70.0) H 03/06/21 04:29 Band Neutrophils % 2.0 % 03/06/21 04:29 Lymphocytes % (Manual) 17.0 % (13.4-35.0) 03/06/21 04:29 Monocytes % (Manual) 3.0 % (0.0-7.3) 03/06/21 04:29 Metamyelocytes % 2.0 % 03/06/21 04:29 Nucleated RBC % Not Reportable 03/06/21 04:29 Seg Neutrophils # 6.5 K/mm3 (1.8-7.7) 03/07/21 04:26 Seg Neutrophils # Man 6.2 K/mm3 (1.8-7.7) 03/06/21 04:29 Band Neutrophils # 0.2 K/mm3 03/06/21 04:29 Lymphocytes # (Manual) 1.4 K/mm3 (1.2-5.4) 03/06/21 04:29 Abs React Lymphs (Man) 0.0 K/mm3 03/06/21 04:29 Monocytes # (Manual) 0.2 K/mm3 (0.0-0.8) 03/06/21 04:29 Eosinophils # (Manual) 0.0 K/mm3 (0.0-0.4) 03/06/21 04:29 Basophils # (Manual) 0.0 K/mm3 (0.0-0.1) 03/06/21 04:29 Metamyelocytes # 0.2 K/mm3 03/06/21 04:29 Myelocytes # 0.0 K/mm3 03/06/21 04:29 Promyelocytes # 0.0 K/mm3 03/06/21 04:29 Blast Cells # 0.0 K/mm3 03/06/21 04:29 WBC Morphology Not Reportable 03/06/21 04:29 Hypersegmented Neuts Not Reportable 03/06/21 04:29 Hyposegmented Neuts Not Reportable 03/06/21 04:29 Hypogranular Neuts Not Reportable 03/06/21 04:29 Smudge Cells Not Reportable 03/06/21 04:29 Toxic Granulation Not Reportable 03/06/21 04:29 Toxic Vacuolation Not Reportable 03/06/21 04:29 Dohle Bodies Not Reportable 03/06/21 04:29 Pelger-Huet Anomaly Not Reportable 03/06/21 04:29 [place]ia Rods Not Reportable 03/06/21 04:29 Platelet Estimate Consistent w auto 03/06/21 04:29 Clumped Platelets Not Reportable 03/06/21 04:29 Plt Clumps, EDTA Not Reportable 03/06/21 04:29 Large Platelets Not Reportable 03/06/21 04:29 Giant Platelets Not Reportable 03/06/21 04:29 Platelet Satelliting Not Reportable 03/06/21 04:29 Plt Morphology Comment Not Reportable 03/06/21 04:29 RBC Morphology Not Reportable 03/06/21 04:29 Dimorphic RBCs Not Reportable 03/06/21 04:29 Polychromasia Not Reportable 03/06/21 04:29 Hypochromasia Not Reportable 03/06/21 04:29 Poikilocytosis 1+ 03/06/21 04:29 Anisocytosis 1+ 03/06/21 04:29 Microcytosis Not Reportable 03/06/21 04:29 Macrocytosis Not Reportable 03/06/21 04:29 Spherocytes Not Reportable 03/06/21 04:29 Pappenheimer Bodies Not Reportable 03/06/21 04:29 Sickle Cells Not Reportable 03/06/21 04:29 Target Cells Not Reportable 03/06/21 04:29 Tear Drop Cells Few 03/06/21 04:29 Ovalocytes Not Reportable 03/06/21 04:29 Helmet Cells Not Reportable 03/06/21 04:29 [place] Bodies Not Reportable 03/06/21 04:29 [place] Rings Not Reportable 03/06/21 04:29 [place] Cells Few 03/06/21 04:29 Bite Cells Not Reportable 03/06/21 04:29 Crenated Cell Not Reportable 03/06/21 04:29 Elliptocytes Few 03/06/21 04:29 Acanthocytes (Spur) Not Reportable 03/06/21 04:29 Rouleaux Not Reportable 03/06/21 04:29 Hemoglobin C Crystals Not Reportable 03/06/21 04:29 Schistocytes Not Reportable 03/06/21 04:29 Malaria parasites Not Reportable 03/06/21 04:29 Kp Bodies Not Reportable 03/06/21 04:29 Hem Pathologist Commnt No 03/06/21 04:29 PT 16.7 Sec. (12.2-14.9) H 03/04/21 20:53 INR 1.29 (0.87-1.13) H 03/04/21 20:53 APTT 27.0 Sec. (24.2-36.6) 03/04/21 20:53 Sodium 130 mmol/L (137-145) L 03/08/21 04:36 Potassium 5.3 mmol/L (3.6-5.0) H 03/08/21 04:36 Chloride 98.6 mmol/L (98-107) 03/08/21 04:36 Carbon Dioxide 17 mmol/L (22-30) L 03/08/21 04:36 Anion Gap 20 mmol/L 03/08/21 04:36 BUN 36 mg/dL (7-17) H 03/08/21 04:36 Creatinine 0.7 mg/dL (0.6-1.2) 03/08/21 04:36 Estimated GFR > 60 ml/min 03/08/21 04:36 BUN/Creatinine Ratio 51 % 03/08/21 04:36 Glucose 95 mg/dL (65-100) 03/08/21 04:36 Calcium 10.6 mg/dL (8.4-10.2) H 03/08/21 04:36 Phosphorus 4.20 mg/dL (2.5-4.5) D 03/08/21 04:36 Magnesium 2.20 mg/dL (1.7-2.3) 03/08/21 04:36 Total Bilirubin 16.90 mg/dL (0.1-1.2) H 03/08/21 04:36 AST 124 units/L (5-40) H 03/08/21 04:36 ALT 157 units/L (7-56) H 03/08/21 04:36 Alkaline Phosphatase 152 units/L (35-129) H 03/08/21 04:36 Ammonia 57.0 umol/L (25-60) 03/04/21 20:53 Total Protein 7.7 g/dL (6.3-8.2) 03/08/21 04:36 Albumin 3.9 g/dL (3.9-5) 03/08/21 04:36 Albumin/Globulin Ratio 1.0 % 03/08/21 04:36 Urine Osmolality 424 Mosm/kg 03/06/21 11:09 Urine Sodium 71 mmol/L 03/06/21 11:09 Urine Potassium 20.61 mmol/L 03/06/21 11:09 Urine Chloride 21.2 mmolL (110-250) L 03/06/21 11:09 Plasma/Serum Alcohol < 0.01 % (0-0.07) 03/04/21 20:53 Microbiology: Microbiology 03/07/21 03:42 Nares - Right MRSA Culture - Preliminary Snowden/IV: Voiding Method Bedside Commode Active Medications - Current Medications Current Medications: Generic Name Dose Route Start Last Admin Trade Name Freq PRN Reason Stop Dose Admin Acetaminophen 650 mg 03/05/21 03:35 Acetaminophen 325 Mg Tab PO Q4H PRN Pain MILD(1-3)/Fever >100.5/SIM Albuterol 2.5 mg 03/05/21 03:35 03/07/21 21:17 Albuterol 2.5 Mg/3 Ml Nebu IH 2.5 mg Q4HRT PRN Administration Shortness Of Breath Diphenhydramine HCl 25 mg 03/06/21 12:33 03/08/21 12:12 Diphenhydramine 50 Mg/Ml Vial IV 25 mg Q6H PRN Administration Itching Furosemide 20 mg 03/06/21 10:00 03/08/21 12:03 Furosemide 20 Mg Tab PO 20 mg QDAY LUCERO Administration Hydromorphone HCl 0.5 mg 03/05/21 03:35 03/08/21 12:00 Hydromorphone 1 Mg/1 Ml Inj IV 0.5 mg Q3H PRN Administration Pain , Severe (7-10) Ceftriaxone Sodium 1 gm in 50 mls @ 100 mls/hr 03/08/21 13:00 Rocephin/Ns 1 Gm/50 Ml IV 03/11/21 23:59 Q24H LUCERO Protocol Lactulose 20 gm 03/07/21 14:00 03/08/21 12:04 Lactulose 20 Gm/30 Ml Oral Liqd PO 20 gm TID LUCERO Administration Lorazepam 0.5 mg 03/08/21 12:00 Lorazepam 2 Mg/Ml Vial IV 03/08/21 14:00 ONCE@1200 NR Multivitamins 1 each 03/05/21 18:00 03/08/21 12:03 Multivitamins ,Therapeutic Tab PO 1 each QDAY LUCERO Administration Ondansetron HCl 4 mg 03/05/21 03:35 03/07/21 00:18 Ondansetron 4 Mg/2 Ml Inj IV 4 mg Q8H PRN Administration Nausea And Vomiting Oxycodone/Acetaminophen 1 tab 03/05/21 03:35 03/07/21 09:32 Oxycodone /Acetaminophen 5-325mg Tab PO 1 tab Q6H PRN Administration Pain, Moderate (4-6) Pantoprazole Sodium 40 mg 03/06/21 07:30 03/08/21 12:16 Pantoprazole 40 Mg Tab PO 40 mg QDAC LUCERO Administration Prednisone 20 mg 03/05/21 16:00 03/08/21 12:03 Prednisone 20 Mg Tab PO 20 mg QDAY LUCERO Administration Quetiapine Fumarate 50 mg 03/05/21 22:00 03/07/21 21:54 Quetiapine 25 Mg Tab PO 50 mg QHS LUCERO Administration Sodium Chloride 10 ml 03/05/21 10:00 03/08/21 12:04 Sodium Chloride 0.9% 10 Ml Flush Syringe IV 10 ml BID LUCERO Administration Sodium Chloride 10 ml 03/05/21 03:35 Sodium Chloride 0.9% 10 Ml Flush Syringe IV PRN PRN LINE FLUSH Spironolactone 25 mg 03/06/21 10:00 03/08/21 12:04 Spironolactone 25 Mg Tab PO 25 mg QDAY LUCERO Administration
[2021-03-08] MEDS: URSODIOL 250 MG TAB PO SCH ×2 (14:00→17:21)
[2021-03-08] MEDS: oxyCODONE /ACETAMINOPHEN 5-325MG TAB PO PRN (14:40)
[2021-03-08] MEDS: cefTRIAXone/NS 1 GM/50 ML 1 GM/50 ML BAG IV SCH (14:52)
[2021-03-08 15:55] LABS: Band Neutrophils # (Manual) 0.3 K/mm3; Myelocytes # (Manual) 0.1 K/mm3; Total Cells Counted 100
[2021-03-08 15:56] LABS: Anisocytosis 1+; Platelet Estimate Consistent w Auto; Poikilocytosis Few
[2021-03-08 16:05] LABS: Platelet Count 112 K/mm3 (140-440)
--- NOTE | 2021-03-08 18:55 | Gastroenterology Progress Note ---
Assessment and Plan 1. Alc cirrhosis/hepatitis 2. Anasarca 3. Jaundice -US without ascites; sx's stable and will need close f/u with primary gi after discharge (hopefully tomorrow). counseled on continued alcohol cessation. Subjective Date of service: 03/08/21 Principal diagnosis: cirrhosis/ascites Interval history: US without ascites; pt tolerating po, overall stable sx's Objective - Constitutional Vitals: Temp Pulse Resp BP Pulse Ox 97.5 F L 103 H 18 117/74 100 03/08/21 07:43 03/08/21 07:43 03/08/21 07:43 03/08/21 07:43 03/08/21 07:43 General appearance: no acute distress - EENT Eyes: scleral icterus - Gastrointestinal General gastrointestinal: Present: soft, non-tender - Labs CBC & Chem 7: 03/08/21 04:36 03/08/21 04:36 Labs: Laboratory Results - last 24 hr 03/08/21 03/08/21 04:36 04:36 WBC 11.1 H RBC 3.05 L Hgb 10.4 Hct 30.0 L MCV 98 H MCH 34 H MCHC 35 H RDW 20.1 H Plt Count 112 L Add Manual Diff Complete Total Counted 100 Seg Neuts % (Manual) 61.0 Band Neutrophils % 3.0 Lymphocytes % (Manual) 25.0 Reactive Lymphs % (Man) 1.0 Monocytes % (Manual) 9.0 H Myelocytes % 1.0 Nucleated RBC % 1.0 H Seg Neutrophils # Man 6.8 Band Neutrophils # 0.3 Lymphocytes # (Manual) 2.8 Abs React Lymphs (Man) 0.1 Monocytes # (Manual) 1.0 H Eosinophils # (Manual) 0.0 Basophils # (Manual) 0.0 Metamyelocytes # 0.0 Myelocytes # 0.1 Promyelocytes # 0.0 Blast Cells # 0.0 WBC Morphology Not Reportable Hypersegmented Neuts Not Reportable Hyposegmented Neuts Not Reportable Hypogranular Neuts Not Reportable Smudge Cells Not Reportable Toxic Granulation Not Reportable Toxic Vacuolation Not Reportable Dohle Bodies Not Reportable Pelger-Huet Anomaly Not Reportable Pita Rods Not Reportable Platelet Estimate Consistent w auto Clumped Platelets Not Reportable Plt Clumps, EDTA Not Reportable Large Platelets Not Reportable Giant Platelets Not Reportable Platelet Satelliting Not Reportable Plt Morphology Comment Not Reportable RBC Morphology Not Reportable Dimorphic RBCs Not Reportable Polychromasia Not Reportable Hypochromasia Not Reportable Poikilocytosis Few Anisocytosis 1+ Microcytosis Not Reportable Macrocytosis Not Reportable Spherocytes Not Reportable Pappenheimer Bodies Not Reportable Sickle Cells Not Reportable Target Cells Not Reportable Tear Drop Cells Not Reportable Ovalocytes Not Reportable Helmet Cells Not Reportable [place] Bodies Not Reportable [place] Rings Not Reportable [place] Cells Not Reportable Bite Cells Not Reportable Crenated Cell Not Reportable Elliptocytes Not Reportable Acanthocytes (Spur) Not Reportable Rouleaux Not Reportable Hemoglobin C Crystals Not Reportable Schistocytes Not Reportable Malaria parasites Not Reportable Kp Bodies Not Reportable Hem Pathologist Commnt No Sodium 130 L Potassium 5.3 H Chloride 98.6 Carbon Dioxide 17 L Anion Gap 20 BUN 36 H Creatinine 0.7 Estimated GFR > 60 BUN/Creatinine Ratio 51 Glucose 95 Calcium 10.6 H Phosphorus 4.20 D Magnesium 2.20 Total Bilirubin 16.90 H AST 124 H ALT 157 H Alkaline Phosphatase 152 H Total Protein 7.7 Albumin 3.9 Albumin/Globulin Ratio 1.0
[2021-03-08] MEDS: QUEtiapine 25 MG TAB PO SCH (22:38)
[2021-03-09] MEDS: HYDROmorphone 1 MG/1 ML INJ IV PRN ×3 (03:06→09:39)
[2021-03-09] MEDS: diphenhydrAMINE 50 MG/ML VIAL IV PRN ×2 (03:06→09:39)
[2021-03-09 07:11] LABS: Alanine Aminotransferase 145 units/L (7-56); Albumin 3.6 g/dL (3.9-5); Blood Urea Nitrogen 39 mg/dL (7-17); Calcium 10.3 mg/dL (8.4-10.2); Hemolysis Index 9
[2021-03-09 07:13] LABS: BUN/Creatinine Ratio 65
[2021-03-09] MEDS: LACTULOSE 20 GM/30 ML ORAL LIQD PO SCH ×2 (09:32→13:04)
[2021-03-09] MEDS: SPIRONOLACTONE 25 MG TAB PO SCH (09:32)
[2021-03-09] MEDS: PANTOPRAZOLE 40 MG TAB PO SCH (09:33)
[2021-03-09] MEDS: FUROSEMIDE 20 MG TAB PO SCH (09:33)
[2021-03-09] MEDS: predniSONE 20 MG TAB PO SCH (09:33)
[2021-03-09] MEDS: MULTIVITAMINS ,THERAPEUTIC TAB PO SCH (09:33)
[2021-03-09] MEDS: URSODIOL 250 MG TAB PO SCH ×2 (09:37→13:04)
[2021-03-09 11:39] VITALS: BP 139/80
[2021-03-09] MEDS ORDERED: oxyCODONE 5 MG TAB PO PRN (13:00)
[2021-03-09] MEDS: cefTRIAXone/NS 1 GM/50 ML 1 GM/50 ML BAG IV SCH (13:05)
--- NOTE | 2021-03-09 16:00 | Discharge Summary ---
Providers - Providers Date of Admission: 03/05/21 03:35 Date of discharge: 03/09/21 Attending physician: KENDELL PADILLA MD 03/05/21 03:35 Consult to Physician [CONS] Routine Comment: Consulting Provider: VIRGIE MEJIAS Physician Instructions: Reason For Exam: Ascites 03/05/21 03:40 Consult to Interventional Radiology [CONS] Routine Consulting Provider: MARTHA GALLEGO Reason For Exam: Ascites Place consult to:: DR WILHELM Notified:: YES Phone number called:: [phone] Was contact made?: Yes If yes, spoke with:: KENDELL Time called:: 11:00 Comment:: DR WILHELM RETURNED CALL TO NANCY 03/05/21 13:25 Consult to Interventional Radiology [CONS] Routine Consulting Provider: MARTHA GALLEGO Reason For Exam: Decompensated ETOH cirrhosis w/ ascites Place consult to:: - Notified:: - Hospitalization Reason for admission: Shortness of breath Condition: Stable Hospital course: 45-year-old lady with history of cirrhosis secondary to alcohol dependence who presented on 03/05 with complaints of shortness of breath and abdominal distention. Rocephin was started for double coverage for UTI and SBP prophylaxi s. Lasix was started for diuresis. She was also found to have acute hypoxic respiratory failure and was started on supplemental O2. GI was consulted for further recommendations. The patient remained stable and no longer required oxygen. She was discharged with close follow-up with her previous GI and PCP. Disposition: 01 HOME / SELF CARE / HOMELESS Final Discharge Diagnosis (Prints w/discharge instructions): Acute hypoxic respiratory failure. Cirrhosis. Alcohol dependence. Ascites Core Measure Documentation - Palliative Care Palliative Care/ Comfort Measures: Not Applicable - Core Measures Any of the following diagnoses?: none Exam - Physical Exam Narrative exam: GENERAL: Well-developed well-nourished. Sitting on the side of the bed in no acute distress. HEENT: Prominent scleral icterus CHEST/LUNGS: CTAB on room air HEART/CARDIOVASCULAR: RRR. No murmur, rubs or gallops appreciated. ABDOMEN: +BS. NT/ND. NEURO: No focal motor deficit. Follows all commands. EXTREMITIES: No cyanosis, clubbing or edema. PSYCH: Cooperative. - Constitutional Vitals: Temp Pulse Resp BP Pulse Ox 98.2 F 111 H 18 139/80 97 03/09/21 11:11 03/09/21 12:00 03/09/21 12:00 03/09/21 11:11 03/09/21 12:00 - Allied Health Allied health notes reviewed: nursing Plan Care Plan Goals: Patient improving overall. No longer requiring oxygen. LFTs stable. Discharged with GI follow up outpatient. Assessment: Improved. No longer requiring supplemental oxygen. No ascites was present to obtain paracentesis. Will discharge home with upcoming GI follow up. Follow up with: HUDSON FERNANDEZ [Other] - 3-5 Days Prescriptions: Multivitamin Tab [Multiple Vitamin TAB (Theragran)] 1 each PO QDAY 30 Days #30 tablet Pantoprazole [Protonix TAB] 40 mg PO QDAC 30 Days #30 tablet oxyCODONE [roxiCODONE] 5 mg PO Q6HR PRN 5 Days #20 tablet PRN Reason: Pain ursodioL [Ursodiol] 500 mg PO TIDDIAB 30 Days #180 tablet
== END 2021-03-09 14:00 | disposition home or self-care (01) | DRG 441 ==
LOC: ED 19:42 → 4A 03-05 03:35
PROVIDERS: ADMIT Hospitalist; ATTEND Student in an Organized Health Care Education/Training Program
DX: K72.90 Hepatic failure, unspecified without coma (principal); J96.01 Acute respiratory failure with hypoxia; E87.1 Hypo-osmolality and hyponatremia; N17.9 Acute kidney failure, unspecified; N39.0 Urinary tract infection, site not specified; K70.31 Alcoholic cirrhosis of liver with ascites; E86.0 Dehydration; E87.5 Hyperkalemia; F10.20 Alcohol dependence, uncomplicated; Y90.9 Presence of alcohol in blood, level not specified; F41.9 Anxiety disorder, unspecified; Z88.8 Allergy status to other drugs, medicaments and biological substances
CPT/HCPCS: 36415; 71045; 76705; 80048; 80053; 80320; 82140; 82436; 83735; 83935; 84100; 84133; 84300; 85007; 85025; 85610; 85730; 87116; 94640; 94644; G0378; G0480; J0696; J1170; J1200; J1940; J2270; J2405; J7512; P9047